=== PATIENT | female | born 1970 | race Hispanic/Latino ===

== ENCOUNTER 2025-04-23 07:20 | Inpatient (IN) | payer SELFPAY ==
[~2025-04-23] VITALS: Ht 162.6 cm; Wt 111.0 kg
--- NOTE | 2025-04-23 07:37 | EKG ---
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
--- NOTE | 2025-04-23 07:39 | ERN ---
General Chief Complaint: Abdominal Pain Stated Complaint: ABD PAIN Time Seen by MD: 07:24 Source: patient History of Present Illness Initial Comments In his is a 54-year-old female coming in complaining of epigastric pain. Patient states that this pain woke her up in the morning walk. States that the pain is quantified at 8/10. No fever no chills. Allergies: Coded Allergies: No Known Drug Allergies (Unverified Allergy, Unknown, 04/23/25) Past Medical History Past Medical History: A-Fib Past Surgical History: None ROS Dictation CONSTITUTIONAL: No chills, no fever, no weakness, no diaphoresis, no malaise. HEAD/FACE: No signs of trauma. EENT: No eye pain, no blurred vision, no tearing, no double vision, no ear pain, no ear discharge, no nose pain, no nasal congestion, no throat pain, no throat swelling, no mouth pain. RESPIRATORY: No cough, no orthopnea, no SOB, no stridor, no wheezing. CARDIOVASCULAR: No chest pain, no edema, no palpitations, no syncope. GASTROINTESTINAL/ABDOMINAL: abdominal pain, no constipation, no diarrhea, no nausea, no vomiting. GENITOURINARY: No abnormal discharge, no dysuria, no frequent urination, no hematuria. No complaints of pain in the genitals. MUSCULOSKELETAL: No back pain, no gout, no joint pain, no joint swelling, no muscle pain, no muscle stiffness, no neck pain. INTEGUMENTARY: No change in color, no change in hair/nails, no dryness, no lesion, no lumps, no rash. NEUROLOGICAL/PSYCH: No anxiety, not depressed, no emotional problem, no headache, no numbness, no pre-existing deficit, no history of seizures, no tremors, no weakness. HEMATOLOGIC/LYMPHATIC: Not anemic, no history of blood clots, no apparent bleeding, no bruising, glands not swollen. All Systems Negative, Except as Noted. Physical Exam Physical Exam Dictation VITAL SIGNS: Reviewed. GENERAL APPEARANCE: Alert, oriented x3, no acute distress, obese. HEAD AND FACE: Non-traumatic. EYES: PERRL, pink conjunctivas, eyelid no trauma, anterior chamber clear. EARS: Pinnas intact and no signs of trauma or erythema. Ear canals clear and no discharge. TMs no erythema. NOSE: No discharge, no bleeding. OROPHARYNX: Mouth normal, teeth no caries, tongue pink. Pharynx clear, no erythema. Tonsils no exudates, no abscesses noted. Mucous membrane moist. NECK: Supple, non-tender, no thyromegaly, no masses, no JVD, no bruits. BREAST: Deferred. CHEST: No tenderness, no crepitus, no paradoxical movement, no retractions. LUNGS: Clear, well-ventilated, symmetric, no rales, no wheezing, no rhonchi, no stridor, good breath sounds bilaterally. HEART: Regular rate, regular rhythm, no murmur, no gallops. VASCULAR: No peripheral edema. ABDOMEN: Soft, positive bowel sounds, nondistended, no guarding, epigastric tender, no rebound, no masses no hepatomegaly, no splenomegaly, no Perkins's sign, no hernias. RECTAL: Deferred. GENITAL: Deferred. NEUROLOGICAL: Normal speech, gross motor function intact, gross sensory function intact. MUSCULOSKELETAL: Neck nontender, full range of motion, back nontender, full range of motion. EXTREMITIES: Nontender, full range of motion. SKIN: Color pink, dry, no turgor, no rash, no lacerations, no abrasions, no contusions. LYMPHATICS: Deferred. Results Laboratory and Microbiology Lab and Micro Result Laboratory Tests Test 04/23/25 07:40 04/23/25 08:10 White Blood Count 6.9 K/uL (4.8-10.8) Red Blood Count 4.28 MIL/uL (4.00-5.50) Hemoglobin 12.6 g/dL (12.0-16.0) Hematocrit 39.2 % (36-48) Mean Corpuscular Volume 91.6 fL (79-99) Mean Corpuscular Hemoglobin 29.4 pg (27.0-33.0) Mean Corpuscular Hemoglobin Concent 32.1 g/dL (32.0-36.0) Red Cell Distribution Width 13.4 % (11.0-15.5) Platelet Count 254 K/uL (130-400) Mean Platelet Volume 9.7 fL (7.5-10.5) Immature Granulocyte % (Auto) 0.4 % (0-1) Neutrophils (%) (Auto) 61.2 % (40.0-77.0) Lymphocytes (%) (Auto) 27.4 % (21.0-51.0) Monocytes (%) (Auto) 6.1 % (3.0-13.0) Eosinophils (%) (Auto) 4.5 % (0.0-8.0) Basophils (%) (Auto) 0.4 % (0.0-5.0) Neutrophils # (Auto) 4.3 K/uL (1.8-7.7) Lymphocytes # (Auto) 1.9 K/uL (1.0-4.8) Monocytes # (Auto) 0.4 K/uL (0.1-1.0) Eosinophils # (Auto) 0.31 K/uL (0.00-0.70) Basophils # (Auto) 0.03 K/uL (0.00-0.20) Absolute Immature Granulocyte (auto 0.03 K/uL (0-1) Nucleated Red Blood Cells 0.0 % (0.0-0.19) Sodium Level 140 mmol/L (136-145) Potassium Level 4.0 mmol/L (3.5-5.1) Chloride Level 104 mmol/L (101-111) Carbon Dioxide Level 29 mmol/L (21-32) Blood Urea Nitrogen 17 mg/dL (7-18) Creatinine 0.7 mg/dL (0.5-1.0) Glomerular Filtration Rate Calc 103 mL/min (>90) Random Glucose 137 mg/dL (70-105) H Total Calcium 8.7 mg/dL (8.5-10.1) Total Bilirubin 0.3 mg/dL (0.2-1.0) Aspartate Amino Transf (AST/SGOT) 14 U/L (10-37) Alanine Aminotransferase (ALT/SGPT) 34 U/L (12-78) Alkaline Phosphatase 92 U/L (50-136) Troponin I High Sensitivity < 4 ng/L (4-50) L Total Protein 7.6 g/dL (6.0-8.3) Albumin 3.8 g/dL (3.5-5.0) Lipase 30 U/L (16-77) Urine Color LIGHT-YELLOW (YELLOW) Urine Appearance CLOUDY (CLEAR) H Urine pH 6.5 (5.0-8.0) Urine Specific Beaver 1.018 (1.001-1.031) Urine Protein NEGATIVE mg/dL (NEGATIVE) Urine Glucose (UA) NEGATIVE mg/dL (NEGATIVE) Urine Ketones NEGATIVE mg/dL (NEGATIVE) Urine Occult Blood NEGATIVE (NEGATIVE) Urine Nitrate 2+ (NEGATIVE) H Urine Bilirubin NEGATIVE mg/dL (NEGATIVE) Urine Urobilinogen 0.2 mg/dL (0.2-1.0) Urine Leukocyte Esterase NEGATIVE Yara/uL Urine RBC 0-1 /HPF (0-1) Urine WBC 2-5 /HPF (0-1) H Urine Squamous Epithelial Cells RARE /HPF (0-2) Urine Non-Squamous Epithelial Cells 1 /HPF (0-2) Urine Bacteria MANY /HPF (None Seen) Labs Reviewed?: Yes EKG/XRAY/US/CT/MRI EKG Comment 04/23/2025 time 7:32 a.m. Ventricular rate 59 Sinus rhythm [place] [address] wave elevation or depression Ultrasound Comment Ultrasound right upper quadrant abdomen-gallstones and small gallstone at the neck of the gallbladder not movable CT Scan Comment [place] [address] [place] [address] IMAGING REPORT Signed PATIENT: CARIDAD OLIVEIRA MR#: [id number] : 1970 SEX: F AGE: 54 LOCATION: [facility] ORDER [id number] STATUS: [facility] REPORT#: [id number] SERVICE 1038 REASON: abd pain ORDERING PHYSICIAN: SANDEEP JIMÉNEZ MD PROCEDURE: ABD PEL WO - CT ABDOMEN/PELVIS W/O CONTRAST EXAM: CT Abdomen and Pelvis Without IV contrast CLINICAL HISTORY: abd pain TECHNIQUE: Axial computed tomography images of the abdomen and pelvis without intravenous contrast. CONTRAST: No IV contrast. COMPARISON: None provided. FINDINGS: LUNG BASES: No pleural effusions are seen. There is mild dependent airspace disease within the bilateral lower lobes that is presumed to reflect atelectasis. LIVER: The liver is enlarged in size. The right hepatic lobe measures approximately 18 cm. Suspected hepatic steatosis. GALLBLADDER AND BILE DUCTS: No biliary ductal dilatation is evident. The gallbladder appears distended with a large calculus of size 2.4 x 3.5 cm seen in the gallbladder lumen. There is no gallbladder wall thickening or pericholecystic inflammatory findings; however, if there is clinical concern for cholecystitis recommend right upper quadrant ultrasound for further evaluation. PANCREAS: Unremarkable. SPLEEN: Unremarkable. ADRENAL GLANDS: Unremarkable. KIDNEYS, URETERS, AND BLADDER: The kidneys appear within normal limits. There is no hydronephrosis or hydroureter. No urinary calculi are seen. STOMACH AND BOWEL: Unremarkable appearance of the stomach. No evidence of bowel obstruction. No evidence suggesting enteritis or colitis. Colonic diverticulosis without CT evidence for diverticulitis. APPENDIX: The appendix is normal. PERITONEUM: No free fluid. No free air. LYMPH NODES: No lymphadenopathy is evident. REPRODUCTIVE: The cervix appears mildly bulky, measuring approximately 3.6 x 3 cm. VASCULATURE: No evidence of abdominal aortic aneurysm. BONES: No aggressive appearing osseous lesion. No acute osseous pathology evident. Mild degenerative changes in the spine. Sclerosis in the bilateral sacro-iliac joints. Mild scoliosis in lumbar spine. IMPRESSION: 1. No acute intraabdominal or pelvic pathology. 2. Large gallbladder calculus measuring 2.4 x 3.5 cm with gallbladder distention. No additional secondary CT findings to suggest acute cholecystitis; however, if clinical concern persist recommend right upper quadrant ultrasound for further evaluation. 3. Hepatomegaly with right hepatic lobe measuring 18 cm. Hepatic steatosis. /Glen DICTATED BY: MEHREEN LAMB Jr., MD DATE: 04/23/251335 ELECTRONICALLY SIGNED BY: MEHREEN LAMB Jr., MD DATE: 04/23/251335 [facility] MDM: Differential diagnosis: Cholecystitis, biliary colic, abdominal pain, Rationale: Tests considered and ordered secondary to shared decision making include: Previous outside records reviewed: Old ER visits. Risk of complication and/or morbidity or mortality of patient management: None Medications-Per medication reconciliation Need for hospitalization: Patient does meet criteria for hospitalization. Need for emergency major/minor surgery: No There are no social concerns with this patient. Prescription drug management Prescriptions will include symptomatic care Patient's prior external medical records from other ER visits were reviewed by me as indicated. Prior testing and results from previous visits were reviewed. Prior tests were taken into account with medical decision making and resource utilization, independent historian/historians were used to obtain complete medical history. I independently interpreted the test that were performed, results were reviewed by me and considered findings on radiology if ordered. Medical management and examination interpretation discussions were had by me with other qualified healthcare professionals as indicated for the patient's care. She will be admitted under the care of hospitalist group for ongoing management of acute cholecystitis. Surgeon consulted already ED Course Orders Procedure Category Date Status Time Cbc With Differential LAB 04/23/25 Complete 07:25 Comprehensive LAB 04/23/25 Complete Metabolic Panel 07:25 Troponin I High LAB 04/23/25 Complete Sensitivity 07:25 Urinalysis Profile LAB 04/23/25 Complete 07:25 12 Lead Ekg Tracing- EKG 04/23/25 Complete Technical 07:25 0.9%Nacl 1000ml (Ns PHA 04/23/25 Complete 1000ml) 07:30 Pantoprazole 40mg Inj PHA 04/23/25 Complete (Protonix 40mg Inj 07:30 Lipase LAB 04/23/25 Complete 07:25 Culture Urine GOLDY 04/23/25 In Process 09:51 Ondansetron 4mg Inj PHA 04/23/25 Complete (Zofran 4mg Inj) 10:30 Lidocaine Hcl 2% PHA 04/23/25 Complete Viscous (Lidocaine Hcl 10:30 Mag/Alum/Simeth 30ml PHA 04/23/25 Complete (Maalox Plus 30ml) 10:30 Ct Abdomen/Pelvis W/O CT 04/23/25 Resulted Contrast 10:38 Us Abdominal Ruq\Ltd US 04/23/25 Taken 12:47 Current Medications Medications (Trade) Dose Ordered Sig/Everette Route PRN Reason Start Time Stop Time Status Last Admin Dose Admin Al Hydroxide/Mg Hydroxide (MAALox PLUS 30ML) 30 ml ONCE ONCE PO 04/23/25 10:30 04/23/25 10:31 DC 04/23/25 10:30 Lidocaine HCl (Lidocaine HCl 2% Viscous) 10 ml ONCE ONCE PO 04/23/25 10:30 04/23/25 10:31 DC 04/23/25 10:31 Ondansetron HCl (zoFRAN 4MG INJ) 4 mg ONCE ONCE IVP 04/23/25 10:30 04/23/25 10:31 DC 04/23/25 10:30 Pantoprazole Sodium (PROTonix 40MG INJ) 40 mg ONCE ONCE IVP 04/23/25 07:30 04/23/25 07:31 DC 04/23/25 08:36 Sodium Chloride 1,000 ml @ 0 mls/hr ONCE ONCE IV 04/23/25 07:30 04/23/25 07:31 DC 04/23/25 08:36 Vital Signs Date Time Temp Pulse Resp B/P (MAP) Pulse Ox O2 Delivery O2 Flow Rate FiO2 04/23/25 13:15 97.9 77 18 158/80 98 Room Air* 0 21 04/23/25 10:23 97.3 65 18 178/74 98 Room Air* 0 21 04/23/25 08:50 97.3 63 18 158/62 97 Room Air* 0 21 04/23/25 07:23 97.9 64 18 179/77 98 Room Air 0 DX & DISP Disposition: Inpatient Decision to Admit Time: 14:39 Departure Impression: Primary Impression: Cholecystitis Condition: Stable Referrals: SELF,REFERRAL (PCP) SANDEEP JIMÉNEZ MD Apr 23, 2025 07:38
[2025-04-23 07:49] LABS: IMMATURE GRANULOCYTE ABSOLUTE 0.03 K/uL (0-1); NUCLEATED RED BLOOD CELLS 0.0 % (0.0-0.19); PLATELET COUNT (AUTO) 254 K/uL (130-400); RED BLOOD CELL COUNT(AUTO) 4.28 MIL/uL (4.00-5.50); RED CELL DISTRIBUTION WIDTH 13.4 % (11.0-15.5); WHITE BLOOD COUNT (AUTO) 6.9 K/uL (4.8-10.8)
[2025-04-23 08:05] LABS: CREATININE 0.7 mg/dL (0.5-1.0); GLOMERULAR FILTR. RATE CALC 103.0 mL/min (>90); GLUCOSE,RANDOM 137.0 mg/dL (70-105); SODIUM SERUM 140.0 mmol/L (136-145); UREA NITROGEN, BLOOD 17.0 mg/dL (7-18)
[2025-04-23 08:08] LABS: ASPARTATE AMINOTRANSFERASE 14.0 U/L (10-37); TOTAL PROTEIN, SERUM 7.6 g/dL (6.0-8.3)
[2025-04-23] MEDS: 0.9%NACL 1000ML 1,000 ML IV ONE (08:36)
[2025-04-23 09:39] LABS: APPEARANCE,URINE CLOUDY (CLEAR); GLUCOSE, URINE (UA) NEGATIVE (NEGATIVE); LEUKOCYTE ESTERASE ,URINE NEGATIVE Leu/uL (NEGATIVE); NITRATE,URINE 2+ (NEGATIVE); OCCULT BLOOD,URINE NEGATIVE (NEGATIVE)
[2025-04-23 09:50] LABS: ADD UA MICROSCOPIC YES
[2025-04-23 10:10] LABS: NON-SQUAMOUS EPITHELIAL CELL 1 /HPF (0-2); SQUAMOUS EPITHELIAL CELL,UR RARE /HPF (0-2)
[2025-04-23] MEDS: MAG/ALUM/SIMETH 30 ML UDCUP PO ONE (10:30)
[2025-04-23] MEDS: LIDOCAINE HCL 2% VISCOUS 15 ML UDCUP PO ONE (10:31)
--- NOTE | 2025-04-23 12:37 | HMCIMG ---
EXAM: CT Abdomen and Pelvis Without IV contrast CLINICAL HISTORY: abd pain TECHNIQUE: Axial computed tomography images of the abdomen and pelvis without intravenous contrast. CONTRAST: No IV contrast. COMPARISON: None provided. FINDINGS: LUNG BASES: No pleural effusions are seen. There is mild dependent airspace disease within the bilateral lower lobes that is presumed to reflect atelectasis. LIVER: The liver is enlarged in size. The right hepatic lobe measures approximately 18 cm. Suspected hepatic steatosis. GALLBLADDER AND BILE DUCTS: No biliary ductal dilatation is evident. The gallbladder appears distended with a large calculus of size 2.4 x 3.5 cm seen in the gallbladder lumen. There is no gallbladder wall thickening or pericholecystic inflammatory findings; however, if there is clinical concern for cholecystitis recommend right upper quadrant ultrasound for further evaluation. PANCREAS: Unremarkable. SPLEEN: Unremarkable. ADRENAL GLANDS: Unremarkable. KIDNEYS, URETERS, AND BLADDER: The kidneys appear within normal limits. There is no hydronephrosis or hydroureter. No urinary calculi are seen. STOMACH AND BOWEL: Unremarkable appearance of the stomach. No evidence of bowel obstruction. No evidence suggesting enteritis or colitis. Colonic diverticulosis without CT evidence for diverticulitis. APPENDIX: The appendix is normal. PERITONEUM: No free fluid. No free air. LYMPH NODES: No lymphadenopathy is evident. REPRODUCTIVE: The cervix appears mildly bulky, measuring approximately 3.6 x 3 cm. VASCULATURE: No evidence of abdominal aortic aneurysm. BONES: No aggressive appearing osseous lesion. No acute osseous pathology evident. Mild degenerative changes in the spine. Sclerosis in the bilateral sacro-iliac joints. Mild scoliosis in lumbar spine. IMPRESSION: 1. No acute intraabdominal or pelvic pathology. 2. Large gallbladder calculus measuring 2.4 x 3.5 cm with gallbladder distention. No additional secondary CT findings to suggest acute cholecystitis; however, if clinical concern persist recommend right upper quadrant ultrasound for further evaluation. 3. Hepatomegaly with right hepatic lobe measuring 18 cm. Hepatic steatosis. /Clark
--- NOTE | 2025-04-23 15:22 | HMCIMG ---
EXAM: US Abdomen, Right Upper Quadrant. CLINICAL HISTORY: ruq pain TECHNIQUE: Right upper quadrant sonography performed with image documentation. COMPARISON: None provided. FINDINGS: LIVER: The liver is enlarged in size, measuring approximately 20.1 cm with increased echogenicity. GALLBLADDER: The gallbladder appears distended with multiple calculi. Normal gallbladder wall thickness, measuring 0.2 cm. Trace pericholecystic free fluid. COMMON BILE DUCT: No dilation. PANCREAS: The visualized pancreas appears within normal limits. The distal pancreas is obscured by bowel gas. RIGHT KIDNEY: Unremarkable. Normal renal contours. No renal mass or calculus. No hydronephrosis. IMPRESSION: 1. Cholelithiasis, gallbladder distention, and trace pericholecystic free fluid or findings concerning for acute cholecystitis. Recommend a hepatobiliary (HIDA) scan for further evaluation. 2. Hepatomegaly and hepatic steatosis. /Ministerio
[2025-04-23 15:34] LABS: INR 1.01 (0.85-1.15)
--- NOTE | 2025-04-23 16:22 | HP ---
[facility] HISTORY AND PHYSICAL Date of Service: Apr 23, 2025 Time of Service: 16:17 HISTORY OF PRESENT ILLNESS: Date of service: 04/23/2025, patient was seen in ER 16 This is a 54-year-old female with underlying history of atrial fibrillation, obesity who presented to the ER for further evaluation of epigastric abdominal pain with nausea. Symptoms started early this morning and was severe in intensity and patient rated the pain as 8/10. Pain was radiating to the back. Pain has been intermittent and on current bedside interview, she reports pain is 6/10. Denies previous history of GI disorder. Denies previous history of gastritis/peptic ulcer disease. Patient is followed by Dr. Lane with cardiac electrophysiology as outpatient. Reports a prior diagnosis of atrial fibrillation and is currently maintained on outpatient treatment with metoprolol tartrate 50 mg b.i.d. and flecainide 50 mg b.i.d.. Patient denies being on anticoagulation for atrial fibrillation. Denies being on aspirin either. On presentation to the hospital, patient was noted to be afebrile with T-max of 97.9 F, blood pressure of 179/77, heart rate of 64 and saturating well on room air. Labs on presentation showed WBC count of 6900, hemoglobin of 12.6, platelet count of 4000. CMP was unremarkable. Cardiac panel was noted to be negative. Further evaluation with CT abdomen pelvis without contrast showed findings of large gallbladder calculus measuring 2.4 cm x 3.5 cm with gallbladder distention. Abdominal US showed findings of cholelithiasis with gallbladder distention with cholecystitis not ruled out. Patient will be admitted for further treatment management of biliary colic with cholelithiasis with concerns for possible cholecystitis. Patient will be started on IV fluid hydration, IV antibiotics and will be kept NPO. Consultation with General surgery has already been requested from the ER by Dr. Jiménez, will follow up further recommendations. HIDA Scan will be obtained. Patient denies active chest pain or shortness of breath otherwise. REVIEW OF SYSTEMS CONSTITUTIONAL: Denies fevers, chills, or night sweats. No unintentional weight loss reported. NEUROLOGICAL: Denies headache, amaurosis fugax, motor weakness, sensory deficit, vertigo/spinning sensation, gait abnormalities, or tremors. ENT: No hearing loss, otalgia, otorrhea, rhinitis, rhinorrhea, hoarseness, or sore throat. CARDIOVASCULAR: Denies any exertional angina, dyspnea on exertion, orthopnea, paroxysmal nocturnal dyspnea, palpitations, life-threatening arrhythmias, claudication. PULMONARY: Denies any shortness of breath, cough, phlegm/sputum, hemoptysis, pleuritic chest pain. SLEEP: Denies morning headaches, daytime somnolence or napping. Denies difficulty falling asleep, staying asleep, waking from sleep. Denies knowledge of snoring. GASTROINTESTINAL: epigastric abdominal pain with nausea and vomiting today GENITOURINARY: Denies frequency, urgency, nocturia, hematuria or incontinence (Storage/Irritative symptoms.) Low urinary stream, straining to void, urinary intermittency or hesitancy, splitting of the voiding stream, terminal dribbling. ENDOCRINOLOGIC: Denies polyuria, polydipsia, polyphagia or heat/cold intolerances. HEMATOLOGIC: Denies thrombophilia/previous clots, or coagulopathy/bleeding disorders. ONCOLOGIC: Denies personal history of malignancy. DERMATOLOGIC: Denies rashes or pruritus. PSYCHIATRIC: Denies any suicidal or homicidal ideation. Denies hallucinations. PAST MEDICAL HISTORY: Atrial fibrillation, obesity PAST SURGICAL HISTORY: Denies history of major surgery PAST SOCIAL HISTORY: Denies active smoking or alcohol consumption FAMILY HISTORY: Denies pertinent family history Allergies: No known drug allergies Home medications: Reports being on metoprolol tartrate 50 mg b.i.d., flecainide 50 mg b.i.d. Coded Allergies: No Known Drug Allergies (Unverified Allergy, Unknown, 04/23/25) PHYSICAL EXAM GENERAL APPEARANCE: The patient is awake, alert, and oriented, in no acute cardiopulmonary distress. NEUROLOGICAL: Cranial nerves II-XII grossly intact. Motor is 5/5 in bilateral upper and lower extremities proximal to distal. No sensory deficits. HEENT: Face is symmetric. Pupils are equal and reactive. Extraocular movements are intact. NECK: Supple. No JVD. No thyromegaly. No submental, submandibular, pre- /postauricular, occipital or supraclavicular lymphadenopathy. CHEST: Normal chest expansion. No Telemetry. LUNGS: Absence of any rales, rhonchi or any wheezing. CARDIOVASCULAR: Regular. S1 and S2 normal. No appreciable rubs, murmurs or gallops. ABDOMEN: Soft, nontender, and nondistended. There is no rebound, voluntary guarding, or rigidity. : Deferred. No Muhammad. EXTREMITIES: Non-edematous and not cyanotic. No clubbing. Good capillary refill. SKIN: No skin breakdown. Vital Sign (Last 24 Hours) 04/23/25 13:15 Temp 97.9 Pulse 77 Resp 18 B/P (MAP) 158/80 Pulse Ox 98 O2 Delivery Room Air* O2 Flow Rate 0 FiO2 21 LABS: Laboratory: Test 04/23/25 15:13 04/23/25 08:10 04/23/25 07:40 Range/Units Prothrombin Time 10.7 9.6-11.6 SEC Prothromb Time International Ratio 1.01 0.85-1.15 Activated Partial Thromboplast Time 27.3 26.3-35.5 SEC Hemoglobin A1c 5.7 4.0-6.0 % Estimated Average Glucose (eAG) 117 70-126 mg/dL C-Reactive Protein, Quantitative 10.90 H 0.5-3.0 mg/L Procalcitonin < 0.05 L 0.05-0.5 ng/mL Thyroid Stimulating Hormone (TSH) 0.66 0.36-3.74 uIU/mL Urine Color LIGHT-YELLOW YELLOW Urine Appearance CLOUDY H CLEAR Urine pH 6.5 5.0-8.0 Urine Specific Varney 1.018 1.001-1.031 Urine Protein NEGATIVE NEGATIVE mg/dL Urine Glucose (UA) NEGATIVE NEGATIVE mg/dL Urine Ketones NEGATIVE NEGATIVE mg/dL Urine Occult Blood NEGATIVE NEGATIVE Urine Nitrate 2+ H NEGATIVE Urine Bilirubin NEGATIVE NEGATIVE mg/dL Urine Urobilinogen 0.2 0.2-1.0 mg/dL Urine Leukocyte Esterase NEGATIVE NEGATIVE Yara/uL Urine RBC 0-1 0-1 /HPF Urine WBC 2-5 H 0-1 /HPF Urine Squamous Epithelial Cells RARE 0-2 /HPF Urine Non-Squamous Epithelial Cells 1 0-2 /HPF Urine Bacteria MANY None Seen /HPF White Blood Count 6.9 4.8-10.8 K/uL Red Blood Count 4.28 4.00-5.50 MIL/uL Hemoglobin 12.6 12.0-16.0 g/dL Hematocrit 39.2 36-48 % Mean Corpuscular Volume 91.6 79-99 fL Mean Corpuscular Hemoglobin 29.4 27.0-33.0 pg Mean Corpuscular Hemoglobin Concent 32.1 32.0-36.0 g/dL Red Cell Distribution Width 13.4 11.0-15.5 % Platelet Count 254 130-400 K/uL Mean Platelet Volume 9.7 7.5-10.5 fL Immature Granulocyte % (Auto) 0.4 0-1 % Neutrophils (%) (Auto) 61.2 40.0-77.0 % Lymphocytes (%) (Auto) 27.4 21.0-51.0 % Monocytes (%) (Auto) 6.1 3.0-13.0 % Eosinophils (%) (Auto) 4.5 0.0-8.0 % Basophils (%) (Auto) 0.4 0.0-5.0 % Neutrophils # (Auto) 4.3 1.8-7.7 K/uL Lymphocytes # (Auto) 1.9 1.0-4.8 K/uL Monocytes # (Auto) 0.4 0.1-1.0 K/uL Eosinophils # (Auto) 0.31 0.00-0.70 K/uL Basophils # (Auto) 0.03 0.00-0.20 K/uL Absolute Immature Granulocyte (auto 0.03 0-1 K/uL Nucleated Red Blood Cells 0.0 0.0-0.19 % Sodium Level 140 136-145 mmol/L Potassium Level 4.0 3.5-5.1 mmol/L Chloride Level 104 101-111 mmol/L Carbon Dioxide Level 29 21-32 mmol/L Blood Urea Nitrogen 17 7-18 mg/dL Creatinine 0.7 0.5-1.0 mg/dL Glomerular Filtration Rate Calc 103 >90 mL/min Random Glucose 137 H 70-105 mg/dL Total Calcium 8.7 8.5-10.1 mg/dL Total Bilirubin 0.3 0.2-1.0 mg/dL Aspartate Amino Transf (AST/SGOT) 14 10-37 U/L Alanine Aminotransferase (ALT/SGPT) 34 12-78 U/L Alkaline Phosphatase 92 50-136 U/L Troponin I High Sensitivity < 4 L 4-50 ng/L Total Protein 7.6 6.0-8.3 g/dL Albumin 3.8 3.5-5.0 g/dL Lipase 30 16-77 U/L Current Medications Medications (Trade) Dose Ordered Sig/Everette Route PRN Reason Start Time Stop Time Status Last Admin Dose Admin Acetaminophen (TYLenol 325MG TAB) 650 mg Q6H PRN PO MILD PAIN (1-3) 04/23/25 15:30 05/23/25 15:29 Flecainide Acetate (Tambocor) 50 mg BID PO 04/23/25 21:00 05/23/25 20:59 Ketorolac Tromethamine (toRADol) 15 mg Q12H PRN IV MODERATE PAIN (4-6) 04/23/25 15:30 04/25/25 16:00 Lactated Ringer's 1,000 ml @ 100 mls/hr Q10H IV 04/23/25 15:00 05/23/25 14:59 Metoprolol Tartrate (loprESSOR) 50 mg BID PO 04/23/25 21:00 05/23/25 20:59 Morphine Sulfate (morPHINE 2MG SYG) 2 mg Q6H PRN IVP SEVERE PAIN (7-10) 04/23/25 15:30 04/30/25 15:29 Ondansetron HCl (zoFRAN 4MG INJ) 4 mg Q6H PRN IVP NAUSEA/VOMITING 04/23/25 15:30 05/23/25 15:29 Piperacillin Sod/ Tazobactam Sod (Zosyn 3.375gm+NS 50ml) 3.375 gm Q8H IVPB 04/23/25 15:30 05/03/25 15:29 Piperacillin Sod/ Tazobactam Sod (Zosyn 3.375gm+NS 50ml) 3.375 gm Q8H STAT IV 04/23/25 14:44 04/23/25 14:45 DC DIAGNOSTICS / RADIOLOGY: SERVICE [id number] REASON: abd pain ORDERING PHYSICIAN: SANDEEP JIMÉNEZ MD PROCEDURE: ABD PEL WO - CT ABDOMEN/PELVIS W/O CONTRAST EXAM: CT Abdomen and Pelvis Without IV contrast CLINICAL HISTORY: abd pain TECHNIQUE: Axial computed tomography images of the abdomen and pelvis without intravenous contrast. CONTRAST: No IV contrast. COMPARISON: None provided. FINDINGS: LUNG BASES: No pleural effusions are seen. There is mild dependent airspace disease within the bilateral lower lobes that is presumed to reflect atelectasis. LIVER: The liver is enlarged in size. The right hepatic lobe measures approximately 18 cm. Suspected hepatic steatosis. GALLBLADDER AND BILE DUCTS: No biliary ductal dilatation is evident. The gallbladder appears distended with a large calculus of size 2.4 x 3.5 cm seen in the gallbladder lumen. There is no gallbladder wall thickening or pericholecystic inflammatory findings; however, if there is clinical concern for cholecystitis recommend right upper quadrant ultrasound for further evaluation. PANCREAS: Unremarkable. SPLEEN: Unremarkable. ADRENAL GLANDS: Unremarkable. KIDNEYS, URETERS, AND BLADDER: The kidneys appear within normal limits. There is no hydronephrosis or hydroureter. No urinary calculi are seen. STOMACH AND BOWEL: Unremarkable appearance of the stomach. No evidence of bowel obstruction. No evidence suggesting enteritis or colitis. Colonic diverticulosis without CT evidence for diverticulitis. APPENDIX: The appendix is normal. PERITONEUM: No free fluid. No free air. LYMPH NODES: No lymphadenopathy is evident. REPRODUCTIVE: The cervix appears mildly bulky, measuring approximately 3.6 x 3 cm. VASCULATURE: No evidence of abdominal aortic aneurysm. BONES: No aggressive appearing osseous lesion. No acute osseous pathology evident. Mild degenerative changes in the spine. Sclerosis in the bilateral sacro-iliac joints. Mild scoliosis in lumbar spine. IMPRESSION: 1. No acute intraabdominal or pelvic pathology. 2. Large gallbladder calculus measuring 2.4 x 3.5 cm with gallbladder distention. No additional secondary CT findings to suggest acute cholecystitis; however, if clinical concern persist recommend right upper quadrant ultrasound for further evaluation. 3. Hepatomegaly with right hepatic lobe measuring 18 cm. Hepatic steatosis. /Stollings DICTATED BY: MEHREEN LAMB Jr., MD DATE: 04/23/251335 ELECTRONICALLY SIGNED BY: MEHREEN LAMB Jr., MD DATE: 04/23/251335 SERVICE 1247 REASON: ruq pain ORDERING PHYSICIAN: SANDEEP JIMÉNEZ MD PROCEDURE: ABDRUQLTD - US ABDOMINAL RUQ\LTD EXAM: US Abdomen, Right Upper Quadrant. CLINICAL HISTORY: ruq pain TECHNIQUE: Right upper quadrant sonography performed with image documentation. COMPARISON: None provided. FINDINGS: LIVER: The liver is enlarged in size, measuring approximately 20.1 cm with increased echogenicity. GALLBLADDER: The gallbladder appears distended with multiple calculi. Normal gallbladder wall thickness, measuring 0.2 cm. Trace pericholecystic free fluid. COMMON BILE DUCT: No dilation. PANCREAS: The visualized pancreas appears within normal limits. The distal pancreas is obscured by bowel gas. RIGHT KIDNEY: Unremarkable. Normal renal contours. No renal mass or calculus. No hydronephrosis. IMPRESSION: 1. Cholelithiasis, gallbladder distention, and trace pericholecystic free fluid or findings concerning for acute cholecystitis. Recommend a hepatobiliary (HIDA) scan for further evaluation. 2. Hepatomegaly and hepatic steatosis. /Stollings DICTATED BY: MEHREEN LAMB Jr., MD DATE: 04/23/251621 ELECTRONICALLY SIGNED BY: MEHREEN LAMB Jr., MD DATE: 04/23/251621 ASSESSMENT: Biliary colic with cholelithiasis, POA Rule out developing acute cholecystitis, POA Underlying history of atrial fibrillation, POA Rule out urinary tract infection, POA Obesity, POA PLAN: Patient will be admitted to medical-surgical floor under telemetry monitoring We will keep patient NPO Gallbladder noted to be distended with multiple large stones, we will obtain HIDA scan to rule out developing acute cholecystitis Patient will be kept NPO except for medications today We will start patient on IV hydration with LR at 100 mL/hour We will keep patient on IV Zosyn empirically We will follow up urine culture We will keep patient on GI prophylaxis with Protonix Consultation with General surgery has been requested Patient to continue with home medications for atrial fibrillation including metoprolol tartrate and flecainide All labs will be repeated in the morning We will keep patient on DVT prophylaxis with Lovenox Date of service: 04/23/2025 Plan of care was discussed with patient and family at bedside, Mike Barrios MD Advanced Care Planning: Which of the following were discussed: Hospice care: Yes __ No _X_ Therapeutic options: Yes __X No __ Advance directives: Yes __X No __ Other discussions: Discussed with who?: Patient Voluntary nature of this service was explained to the patient? Yes _x_ No __ Amount of time spent: 20 minutes MIKE BARRIOS MD Apr 23, 2025 16:22
--- NOTE | 2025-04-23 16:33 | NUR ---
DCP:HOME Pt currently lives alone in her home. Pt does not report having any DME, home health, or provider services. Pt states that she can complete ADLs independently. [facility] however states that she has not gone in about a year however if needed for follow up she will go there. At [place] pt states that she is thinking about going home with her dgt Julia [phone] and family can assist with transportation. Addendum: 04/23/25 at 1636 by RICK MARTINEZ SS Amended: Links added.
[2025-04-23] MEDS: ZOSYN 3.375GM +NS 50ML IVPB SCH (16:51)
[2025-04-23] MEDS: LACTATED RINGERS 1000ML 1,000 ML IV SCH (16:52)
[2025-04-23] MEDS: ZOSYN 3.375GM +NS 50ML IV STA (16:53)
--- NOTE | 2025-04-23 17:01 | NUR ---
VEROA NPO AFTER MIDNIGHT.VEROA IN THEMORNING. NO NARCOTICS PRIOR TO PROCEDURE
[2025-04-23] MEDS: ENOXAPARIN SODIUM 40 MG/0.4 ML SYRINGE SQ SCH (19:59)
[2025-04-23] MEDS: FLECAINIDE ACETATE 100 MG TABLET PO SCH (20:13)
[2025-04-23 23:00] VITALS: BP 149/68; PULSE 69; RESP 20; TEMP 98.2
[2025-04-24] VITALS (8 sets, daily range): BP systolic 117–190; BP diastolic 52–87; PULSE 52–67; RESP 19–20; TEMP 97.6–98.1; O2SAT 96
[2025-04-24 05:33] LABS: IMMATURE GRANULOCYTE ABSOLUTE 0.01 K/uL (0-1); NUCLEATED RED BLOOD CELLS 0.0 % (0.0-0.19); PLATELET COUNT (AUTO) 228 K/uL (130-400); RED BLOOD CELL COUNT(AUTO) 3.82 MIL/uL (4.00-5.50); RED CELL DISTRIBUTION WIDTH 13.6 % (11.0-15.5); WHITE BLOOD COUNT (AUTO) 5.8 K/uL (4.8-10.8)
[2025-04-24 05:52] LABS: ASPARTATE AMINOTRANSFERASE 13.0 U/L (10-37); CREATININE 0.6 mg/dL (0.5-1.0); GLOMERULAR FILTR. RATE CALC 107.0 mL/min (>90); GLUCOSE,RANDOM 105.0 mg/dL (70-105); SODIUM SERUM 141.0 mmol/L (136-145); TOTAL PROTEIN, SERUM 6.4 g/dL (6.0-8.3); UREA NITROGEN, BLOOD 11.0 mg/dL (7-18)
--- NOTE | 2025-04-24 11:03 | NUR ---
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
[2025-04-24] MEDS: MAGNESIUM CITRATE 296 ML SOLUTION PO ONE (11:15)
--- NOTE | 2025-04-24 11:29 | CONS ---
GENERAL SURGERY CONSULTATION NOTE DATE OF CONSULTATION: Apr 24, 2025 TIME OF CONSULTATION: 11:29 CONSULTING SERVICE: Jose Antonio Etienne MD REQUESTING PHYSICAIN: [ ] REASON FOR CONSULTATION: [ ] Abdominal pain with nausea HISTORY OF PRESENT ILLNESS: [ ] 54-year-old lady who presented with abdominal pain Pain started the previous day associated with nausea but no vomiting Pain also radiates to her back No diarrhea but constipation PAST MEDICAL HISTORY: [ ] Morbid obesity AFib PAST SURGICAL HISTORY: [ ] None FAMILY HISTORY: [ ] No family history of hypertension or diabetes SOCIAL HISTORY: [ ] No smoking No alcohol Current Medications Medications (Trade) Dose Ordered Sig/Everette Route Start Time Stop Time Status Last Admin Dose Admin Enoxaparin Sodium (Lovenox) 40 mg HS SQ 04/23/25 21:00 05/23/25 20:59 04/23/25 19:59 40 MG Flecainide Acetate (Tambocor) 50 mg BID PO 04/23/25 21:00 05/23/25 20:59 04/24/25 08:56 50 MG Lactated Ringer's 1,000 ml @ 100 mls/hr Q10H IV 04/23/25 15:00 05/23/25 14:59 04/24/25 11:15 100 MLS/HR Metoprolol Tartrate (loprESSOR) 50 mg BID PO 04/23/25 21:00 05/23/25 20:59 04/24/25 08:56 50 MG Piperacillin Sod/ Tazobactam Sod (Zosyn 3.375gm+NS 50ml) 3.375 gm Q8H IVPB 04/23/25 15:30 05/03/25 15:29 04/24/25 06:33 3.375 GM Piperacillin Sod/ Tazobactam Sod (Zosyn 3.375gm+NS 50ml) 3.375 gm Q8H STAT IV 04/23/25 14:44 04/23/25 14:45 DC Allergies: Coded Allergies: No Known Drug Allergies (Unverified Allergy, Unknown, 04/23/25) REVIEW OF SYSTEMS: SHOE SHINER: [Denies headaches or blurring of vision.] RESP: [No cough, chest pain or SOB.] CVS: [No palpitaions.] GI: [abdominal pain with nausea no vomiting but constipation UTE: [No dysuria or hematuria.] Musculoskeletal: [No swelling or joint pain.] BACK: [No pain or swelling.] All other systems are reviewed and essentially negative pertinent positives in HPI. PHYSICAL EXAMINATION: GENERAL: [Patient is lying comfortably in bed, not in any obvious distress.] HEAD: [Normal with no signs of head trauma.] EYES: [Not pale not jaundiced afebrile to touch.] ENT: [ Normal.] NECK: [Supple,no tenderness,no lymphadenopathy,no masses,no thyromegaly ,no bruits, no JVD.] LUNGS: [Clear breath sounds bilaterally. No wheezes, rales, or rhonchi.] HEART: [Regular rate and rhythm. Normal S1 and S2, without murmurs, rub or gallop.] VASC: [No edema. Peripheral pulses normal and equal in all extremities.] ABD: [Bowel sounds present,soft, RUQ tender, no masses, no organomegaly.] : [Normal, no suprapubic tenderness.] LYMPH: [No lymphadenopathy noted.] EXT: [ Warm soft, non tender.] SKIN: [ No rashes or lesions.] NEURO: [ Awake Alert and oriented x3.] Vital Signs (last 8hr) Date Time Temp Pulse Resp B/P (MAP) Pulse Ox O2 Delivery O2 Flow Rate FiO2 04/24/25 08:28 139/52 04/24/25 08:00 97.9 60 19 190/87 98 Room Air 21 04/24/25 08:00 97.9 60 19 190/87 98 Room Air 21 04/24/25 04:00 98.1 67 20 138/68 96 Room Air LABORATORY: [ ] Hematology Labs: Test 04/24/25 05:21 04/23/25 15:13 Range/Units White Blood Count 5.8 4.8-10.8 K/uL Red Blood Count 3.82 L 4.00-5.50 MIL/uL Hemoglobin 11.3 L 12.0-16.0 g/dL Hematocrit 34.6 L 36-48 % Mean Corpuscular Volume 90.6 79-99 fL Mean Corpuscular Hemoglobin 29.6 27.0-33.0 pg Mean Corpuscular Hemoglobin Concent 32.7 32.0-36.0 g/dL Red Cell Distribution Width 13.6 11.0-15.5 % Platelet Count 228 130-400 K/uL Mean Platelet Volume 9.9 7.5-10.5 fL Immature Granulocyte % (Auto) 0.2 0-1 % Neutrophils (%) (Auto) 60.5 40.0-77.0 % Lymphocytes (%) (Auto) 26.4 21.0-51.0 % Monocytes (%) (Auto) 9.0 3.0-13.0 % Eosinophils (%) (Auto) 3.6 0.0-8.0 % Basophils (%) (Auto) 0.3 0.0-5.0 % Neutrophils # (Auto) 3.5 1.8-7.7 K/uL Lymphocytes # (Auto) 1.5 1.0-4.8 K/uL Monocytes # (Auto) 0.5 0.1-1.0 K/uL Eosinophils # (Auto) 0.21 0.00-0.70 K/uL Basophils # (Auto) 0.02 0.00-0.20 K/uL Absolute Immature Granulocyte (auto 0.01 0-1 K/uL Nucleated Red Blood Cells 0.0 0.0-0.19 % Erythrocyte Sedimentation Rate 28 0-30 MM/HR Chemistry Labs: Test 04/24/25 05:21 04/23/25 15:13 04/23/25 07:40 Range/Units Sodium Level 141 136-145 mmol/L Potassium Level 3.3 L 3.5-5.1 mmol/L Chloride Level 106 101-111 mmol/L Carbon Dioxide Level 28 21-32 mmol/L Blood Urea Nitrogen 11 7-18 mg/dL Creatinine 0.6 0.5-1.0 mg/dL Glomerular Filtration Rate Calc 107 >90 mL/min Random Glucose 105 70-105 mg/dL Total Calcium 8.3 L 8.5-10.1 mg/dL Magnesium Level 2.10 1.80-2.40 mg/dL Total Bilirubin 0.6 # 0.2-1.0 mg/dL Aspartate Amino Transf (AST/SGOT) 13 10-37 U/L Alanine Aminotransferase (ALT/SGPT) 29 12-78 U/L Alkaline Phosphatase 62 # 50-136 U/L Total Protein 6.4 6.0-8.3 g/dL Albumin 3.1 L 3.5-5.0 g/dL Hemoglobin A1c 5.7 4.0-6.0 % Estimated Average Glucose (eAG) 117 70-126 mg/dL C-Reactive Protein, Quantitative 10.90 H 0.5-3.0 mg/L Procalcitonin < 0.05 L 0.05-0.5 ng/mL Thyroid Stimulating Hormone (TSH) 0.66 0.36-3.74 uIU/mL Troponin I High Sensitivity < 4 L 4-50 ng/L Lipase 30 16-77 U/L Coagulation Labs: Test 04/23/25 15:13 Range/Units Prothrombin Time 10.7 9.6-11.6 SEC Prothromb Time International Ratio 1.01 0.85-1.15 Activated Partial Thromboplast Time 27.3 26.3-35.5 SEC DIAGNOSTICS / RADIOLOGY: [Copy/Paste Echos/Imaging Report here] ASSESSMENT: [] Acute cholecystitis Cholelithiasis PLAN: [] NPO/IVF/IV ANTIOBIOTICS Schedule for OR We talked about various treatment options including but not limited to surgery. We talked about risks and benefits of surgery, patient verbalized understanding has agreed to proceed [ ]. We will schedule [ ]. Robotic/laparoscopic cholecystectomy possible open JOSE ANTONIO ETIENNE MD Apr 24, 2025 11:29
--- NOTE | 2025-04-24 12:01 | PN ---
[facility] PROGRESS NOTE Date of Service: Apr 24, 2025 Time of Service: 11:57 SUBJECTIVE: Acute events reported overnight. REVIEW OF SYSTEMS CONSTITUTIONAL: Denies fevers, chills, or night sweats. No unintentional weight loss reported. NEUROLOGICAL: Denies headache, amaurosis fugax, motor weakness, sensory deficit, vertigo/spinning sensation, gait abnormalities, or tremors. ENT: No hearing loss, otalgia, otorrhea, rhinitis, rhinorrhea, hoarseness, or sore throat. CARDIOVASCULAR: Denies any exertional angina, dyspnea on exertion, orthopnea, paroxysmal nocturnal dyspnea, palpitations, life-threatening arrhythmias, claudication. PULMONARY: Denies any shortness of breath, cough, phlegm/sputum, hemoptysis, pleuritic chest pain. SLEEP: Denies morning headaches, daytime somnolence or napping. Denies difficulty falling asleep, staying asleep, waking from sleep. Denies knowledge of snoring. GASTROINTESTINAL: epigastric abdominal pain with nausea and vomiting today GENITOURINARY: Denies frequency, urgency, nocturia, hematuria or incontinence (Storage/Irritative symptoms.) Low urinary stream, straining to void, urinary intermittency or hesitancy, splitting of the voiding stream, terminal dribbling. ENDOCRINOLOGIC: Denies polyuria, polydipsia, polyphagia or heat/cold intolerances. HEMATOLOGIC: Denies thrombophilia/previous clots, or coagulopathy/bleeding disorders. ONCOLOGIC: Denies personal history of malignancy. DERMATOLOGIC: Denies rashes or pruritus. PSYCHIATRIC: Denies any suicidal or homicidal ideation. Denies hallucinations. PHYSICAL EXAM GENERAL APPEARANCE: The patient is awake, alert, and oriented, in no acute cardiopulmonary distress. NEUROLOGICAL: Cranial nerves II-XII grossly intact. Motor is 5/5 in bilateral upper and lower extremities proximal to distal. No sensory deficits. HEENT: Face is symmetric. Pupils are equal and reactive. Extraocular movements are intact. NECK: Supple. No JVD. No thyromegaly. No submental, submandibular, pre- /postauricular, occipital or supraclavicular lymphadenopathy. CHEST: Normal chest expansion. No Telemetry. LUNGS: Absence of any rales, rhonchi or any wheezing. CARDIOVASCULAR: Regular. S1 and S2 normal. No appreciable rubs, murmurs or gallops. ABDOMEN: Soft, nontender, and nondistended. There is no rebound, voluntary guarding, or rigidity. : Deferred. No Muhammad. EXTREMITIES: Non-edematous and not cyanotic. No clubbing. Good capillary refill. SKIN: No skin breakdown. Vital Signs (last 8hr) Date Time Temp Pulse Resp B/P (MAP) Pulse Ox O2 Delivery O2 Flow Rate FiO2 04/24/25 08:28 139/52 04/24/25 08:00 Room Air* 0 21 04/24/25 08:00 97.9 60 19 190/87 98 Room Air 21 04/24/25 08:00 97.9 60 19 190/87 98 Room Air 21 04/24/25 04:00 98.1 67 20 138/68 96 Room Air LABS: Laboratory: Test 04/24/25 05:21 04/23/25 15:13 04/23/25 08:10 04/23/25 07:40 Range/Units White Blood Count 5.8 4.8-10.8 K/uL Red Blood Count 3.82 L 4.00-5.50 MIL/uL Hemoglobin 11.3 L 12.0-16.0 g/dL Hematocrit 34.6 L 36-48 % Mean Corpuscular Volume 90.6 79-99 fL Mean Corpuscular Hemoglobin 29.6 27.0-33.0 pg Mean Corpuscular Hemoglobin Concent 32.7 32.0-36.0 g/dL Red Cell Distribution Width 13.6 11.0-15.5 % Platelet Count 228 130-400 K/uL Mean Platelet Volume 9.9 7.5-10.5 fL Immature Granulocyte % (Auto) 0.2 0-1 % Neutrophils (%) (Auto) 60.5 40.0-77.0 % Lymphocytes (%) (Auto) 26.4 21.0-51.0 % Monocytes (%) (Auto) 9.0 3.0-13.0 % Eosinophils (%) (Auto) 3.6 0.0-8.0 % Basophils (%) (Auto) 0.3 0.0-5.0 % Neutrophils # (Auto) 3.5 1.8-7.7 K/uL Lymphocytes # (Auto) 1.5 1.0-4.8 K/uL Monocytes # (Auto) 0.5 0.1-1.0 K/uL Eosinophils # (Auto) 0.21 0.00-0.70 K/uL Basophils # (Auto) 0.02 0.00-0.20 K/uL Absolute Immature Granulocyte (auto 0.01 0-1 K/uL Nucleated Red Blood Cells 0.0 0.0-0.19 % Sodium Level 141 136-145 mmol/L Potassium Level 3.3 L 3.5-5.1 mmol/L Chloride Level 106 101-111 mmol/L Carbon Dioxide Level 28 21-32 mmol/L Blood Urea Nitrogen 11 7-18 mg/dL Creatinine 0.6 0.5-1.0 mg/dL Glomerular Filtration Rate Calc 107 >90 mL/min Random Glucose 105 70-105 mg/dL Total Calcium 8.3 L 8.5-10.1 mg/dL Magnesium Level 2.10 1.80-2.40 mg/dL Total Bilirubin 0.6 # 0.2-1.0 mg/dL Aspartate Amino Transf (AST/SGOT) 13 10-37 U/L Alanine Aminotransferase (ALT/SGPT) 29 12-78 U/L Alkaline Phosphatase 62 # 50-136 U/L Total Protein 6.4 6.0-8.3 g/dL Albumin 3.1 L 3.5-5.0 g/dL Erythrocyte Sedimentation Rate 28 0-30 MM/HR Prothrombin Time 10.7 9.6-11.6 SEC Prothromb Time International Ratio 1.01 0.85-1.15 Activated Partial Thromboplast Time 27.3 26.3-35.5 SEC Hemoglobin A1c 5.7 4.0-6.0 % Estimated Average Glucose (eAG) 117 70-126 mg/dL C-Reactive Protein, Quantitative 10.90 H 0.5-3.0 mg/L Procalcitonin < 0.05 L 0.05-0.5 ng/mL Thyroid Stimulating Hormone (TSH) 0.66 0.36-3.74 uIU/mL Urine Color LIGHT-YELLOW YELLOW Urine Appearance CLOUDY H CLEAR Urine pH 6.5 5.0-8.0 Urine Specific [place] 1.018 1.001-1.031 Urine Protein NEGATIVE NEGATIVE mg/dL Urine Glucose (UA) NEGATIVE NEGATIVE mg/dL Urine Ketones NEGATIVE NEGATIVE mg/dL Urine Occult Blood NEGATIVE NEGATIVE Urine Nitrate 2+ H NEGATIVE Urine Bilirubin NEGATIVE NEGATIVE mg/dL Urine Urobilinogen 0.2 0.2-1.0 mg/dL Urine Leukocyte Esterase NEGATIVE NEGATIVE Yara/uL Urine RBC 0-1 0-1 /HPF Urine WBC 2-5 H 0-1 /HPF Urine Squamous Epithelial Cells RARE 0-2 /HPF Urine Non-Squamous Epithelial Cells 1 0-2 /HPF Urine Bacteria MANY None Seen /HPF Troponin I High Sensitivity < 4 L 4-50 ng/L Lipase 30 16-77 U/L Current Medications Medications (Trade) Dose Ordered Sig/Everette Route PRN Reason Start Time Stop Time Status Last Admin Dose Admin Acetaminophen (TYLenol 325MG TAB) 650 mg Q6H PRN PO MILD PAIN (1-3) 04/23/25 15:30 05/23/25 15:29 Enoxaparin Sodium (Lovenox) 40 mg HS SQ 04/23/25 21:00 05/23/25 20:59 04/23/25 19:59 40 MG Flecainide Acetate (Tambocor) 50 mg BID PO 04/23/25 21:00 05/23/25 20:59 04/24/25 08:56 50 MG Ketorolac Tromethamine (toRADol) 15 mg Q12H PRN IV MODERATE PAIN (4-6) 04/23/25 15:30 04/25/25 16:00 04/23/25 19:59 15 MG Lactated Ringer's 1,000 ml @ 100 mls/hr Q10H IV 04/23/25 15:00 05/23/25 14:59 04/24/25 11:15 100 MLS/HR Metoprolol Tartrate (loprESSOR) 50 mg BID PO 04/23/25 21:00 05/23/25 20:59 04/24/25 08:56 50 MG Morphine Sulfate (morPHINE 2MG SYG) 2 mg Q6H PRN IVP SEVERE PAIN (7-10) 04/23/25 15:30 04/30/25 15:29 Ondansetron HCl (zoFRAN 4MG INJ) 4 mg Q6H PRN IVP NAUSEA/VOMITING 04/23/25 15:30 05/23/25 15:29 Piperacillin Sod/ Tazobactam Sod (Zosyn 3.375gm+NS 50ml) 3.375 gm Q8H IVPB 04/23/25 15:30 05/03/25 15:29 04/24/25 06:33 3.375 GM Piperacillin Sod/ Tazobactam Sod (Zosyn 3.375gm+NS 50ml) 3.375 gm Q8H STAT IV 04/23/25 14:44 04/23/25 14:45 DC Potassium Chloride 100 ml @ 100 mls/hr AD PRN IV POTASSIUM PROTOCOL 04/24/25 08:30 05/24/25 08:29 Potassium Chloride (K-Dur/Klor-Con 20meq) 20 meq AD PRN PO POTASSIUM PROTOCOL 04/24/25 08:30 05/24/25 08:29 Potassium Chloride (KCl 10% Elixir 20meq/15ml) 20 meq AD PRN PO POTASSIUM PROTOCOL 04/24/25 08:30 05/24/25 08:29 DIAGNOSTICS / RADIOLOGY: [ ] ASSESSMENT: Biliary colic with cholelithiasis, POA Rule out developing acute cholecystitis, POA Underlying history of atrial fibrillation, POA Rule out urinary tract infection, POA Obesity, POA PLAN: Continue Zosyn Trend WBCs Continue pain management with Tylenol, Toradol, IV morphine O2 nasal cannula as needed Monitor blood pressure Follow up with Cardiology, appreciate assistance -continue flecainide -recommend [id number] mg daily post surgery -though cardiac risk for proposed cholecystectomy NPO for now No need for GI prophylaxis No need for IV fluids Trend a.m. BMP Replete electrolytes as necessary DVT prophylaxis with Lovenox Trend a.m. CBC Follow up with With General surgery Full code Case was discussed with patient's nurse at bedside Attention time greater than 30 minutes RAI SALINAS IV, MD Apr 24, 2025 12:01
--- NOTE | 2025-04-24 13:01 | CONS ---
[facility] CARDIOLOGY CONSULTATION NOTE Date Patient Seen: Apr 24, 2025 Time of Visit: 12:55 Reason for Consultation: preoperative cardiac eval History of Present Illness: Patient is a 54-year-old female with a past medical history of paroxysmal atrial fibrillation, diagnosed in August of 2020 during hospitalization. She continued to be symptomatic after initially being placed on metoprolol, with Holter showing three episodes of atrial fibrillation with rapid ventricular response, for which reason flecainide was added to her therapy. Since that time constant she has been asymptomatic. She is not on therapeutic anticoagulation. She has refused consideration of ablation in the past. She presents with complaints of epigastric abdominal pain, diagnosed with cholelithiasis and pending HIDA scan for consideration of cholecystitis diagnosis. Cardiology consultation requested for preoperative cardiovascular risk assessment prior to considering cholecystectomy. Past Medical History: Paroxysmal atrial fibrillation Mild left atrial enlargement Past Surgical History: Denies Family History: Denies Social History: Nonsmoker, independent with ADLs Home Meds: Taking Chelsi 500 MG Capsule as directed Orally , Taking Turmeric 500 MG Capsule as directed Orally , Taking Cayenne Pepper , Taking Vitamin C 500 MG Capsule as directed Orally , Taking Flecainide Acetate 50 MG Tablet 1 tab Orally twice a day , Taking Metoprolol Tartrate 50 MG Tablet 1 tablet with food Orally Twice a day Current Meds: Current Medications Medications Dose Ordered Sig/Everette Start Time Stop Time Status Last Admin Lactated Ringer's 1,000 ml @ 100 mls/hr Q10H 04/23/25 15:00 05/23/25 14:59 04/24/25 11:15 Acetaminophen 650 mg Q6H PRN 04/23/25 15:30 05/23/25 15:29 04/24/25 12:18 Ondansetron HCl 4 mg Q6H PRN 04/23/25 15:30 05/23/25 15:29 Morphine Sulfate 2 mg Q6H PRN 04/23/25 15:30 04/30/25 15:29 Ketorolac Tromethamine 15 mg Q12H PRN 04/23/25 15:30 04/25/25 16:00 04/23/25 19:59 Piperacillin Sod/ Tazobactam Sod 3.375 gm Q8H 04/23/25 15:30 05/03/25 15:29 04/24/25 06:33 Metoprolol Tartrate 50 mg BID 04/23/25 21:00 05/23/25 20:59 04/24/25 08:56 Flecainide Acetate 50 mg BID 04/23/25 21:00 05/23/25 20:59 04/24/25 08:56 Enoxaparin Sodium 40 mg HS 04/23/25 21:00 05/23/25 20:59 04/23/25 19:59 Potassium Chloride 100 ml @ 100 mls/hr AD PRN 04/24/25 08:30 05/24/25 08:29 Potassium Chloride 20 meq AD PRN 04/24/25 08:30 05/24/25 08:29 Potassium Chloride 20 meq AD PRN 04/24/25 08:30 05/24/25 08:29 Review of Systems: epigastric abdominal pain No palpitations, shortness for breath orthopnea PND or lower extremity edema. No chest pain. No bleeding or bruising. Physical Examination: GENERAL: [No acute distress.] HEAD: [Normal with no signs of head trauma.] NECK: [ Normal carotid upstrokes without bruits.] LUNGS: [Clear breath sounds bilaterally. There are right basilar rales one third of the way up the chest. No wheezes, or rhonchi.] HEART: [Normal rate and rhythm. Normal S1 and S2 without murmurs, gallop or rub.] VASC: [Peripheral pulses +2 bilaterally.] ABD: [Soft, nontender, no guarding] EXT: [No clubbing, cyanosis or edema.] SKIN: [No rashes or lesions noted.] NEURO: [Awake, alert, and oriented x3. No focal sensory or strength deficits noted.] Vital Signs (last 8hr) Date Time Temp Pulse Resp B/P (MAP) Pulse Ox O2 Delivery O2 Flow Rate FiO2 04/24/25 12:00 98.1 52 19 140/58 98 Room Air 21 04/24/25 08:28 139/52 04/24/25 08:00 Room Air* 0 21 04/24/25 08:00 97.9 60 19 190/87 98 Room Air 21 04/24/25 08:00 97.9 60 19 190/87 98 Room Air 21 Laboratory: [ ] Hematology Labs: Test 04/24/25 05:21 04/23/25 15:13 Range/Units White Blood Count 5.8 4.8-10.8 K/uL Red Blood Count 3.82 L 4.00-5.50 MIL/uL Hemoglobin 11.3 L 12.0-16.0 g/dL Hematocrit 34.6 L 36-48 % Mean Corpuscular Volume 90.6 79-99 fL Mean Corpuscular Hemoglobin 29.6 27.0-33.0 pg Mean Corpuscular Hemoglobin Concent 32.7 32.0-36.0 g/dL Red Cell Distribution Width 13.6 11.0-15.5 % Platelet Count 228 130-400 K/uL Mean Platelet Volume 9.9 7.5-10.5 fL Immature Granulocyte % (Auto) 0.2 0-1 % Neutrophils (%) (Auto) 60.5 40.0-77.0 % Lymphocytes (%) (Auto) 26.4 21.0-51.0 % Monocytes (%) (Auto) 9.0 3.0-13.0 % Eosinophils (%) (Auto) 3.6 0.0-8.0 % Basophils (%) (Auto) 0.3 0.0-5.0 % Neutrophils # (Auto) 3.5 1.8-7.7 K/uL Lymphocytes # (Auto) 1.5 1.0-4.8 K/uL Monocytes # (Auto) 0.5 0.1-1.0 K/uL Eosinophils # (Auto) 0.21 0.00-0.70 K/uL Basophils # (Auto) 0.02 0.00-0.20 K/uL Absolute Immature Granulocyte (auto 0.01 0-1 K/uL Nucleated Red Blood Cells 0.0 0.0-0.19 % Erythrocyte Sedimentation Rate 28 0-30 MM/HR Chemistry Labs: Test 04/24/25 05:21 04/23/25 15:13 04/23/25 07:40 Range/Units Sodium Level 141 136-145 mmol/L Potassium Level 3.3 L 3.5-5.1 mmol/L Chloride Level 106 101-111 mmol/L Carbon Dioxide Level 28 21-32 mmol/L Blood Urea Nitrogen 11 7-18 mg/dL Creatinine 0.6 0.5-1.0 mg/dL Glomerular Filtration Rate Calc 107 >90 mL/min Random Glucose 105 70-105 mg/dL Total Calcium 8.3 L 8.5-10.1 mg/dL Magnesium Level 2.10 1.80-2.40 mg/dL Total Bilirubin 0.6 # 0.2-1.0 mg/dL Aspartate Amino Transf (AST/SGOT) 13 10-37 U/L Alanine Aminotransferase (ALT/SGPT) 29 12-78 U/L Alkaline Phosphatase 62 # 50-136 U/L Total Protein 6.4 6.0-8.3 g/dL Albumin 3.1 L 3.5-5.0 g/dL Hemoglobin A1c 5.7 4.0-6.0 % Estimated Average Glucose (eAG) 117 70-126 mg/dL C-Reactive Protein, Quantitative 10.90 H 0.5-3.0 mg/L Procalcitonin < 0.05 L 0.05-0.5 ng/mL Thyroid Stimulating Hormone (TSH) 0.66 0.36-3.74 uIU/mL Troponin I High Sensitivity < 4 L 4-50 ng/L Lipase 30 16-77 U/L Coagulation Labs: Test 04/23/25 15:13 Range/Units Prothrombin Time 10.7 9.6-11.6 SEC Prothromb Time International Ratio 1.01 0.85-1.15 Activated Partial Thromboplast Time 27.3 26.3-35.5 SEC Diagnostics / Radiology: IMPRESSION: 1. Cholelithiasis, gallbladder distention, and trace pericholecystic free fluid or findings concerning for acute cholecystitis. Recommend a hepatobiliary (HIDA) scan for further evaluation. 2. Hepatomegaly and hepatic steatosis. /Colby DICTATED BY: MEHREEN LAMB Jr., MD DATE: 04/23/25 1622 Assessment: Preoperative cardiovascular assessment Cholelithiasis Hepatic steatosis Paroxysmal atrial fibrillation, not no anticoagulation Echocardiogram 04/26/2023 which demonstrates an ejection fraction of 60 to 65% with normal diastolic filling pattern, normal-sized left atrium, and mild pulmonic valve regurgitation.. Plan: Patient currently in normal sinus rhythm. She is asymptomatic from an atrial fibrillation standpoint. Due to low CHADS-VASc score, she does not require therapeutic anticoagulation however do recommend 81 mg daily aspirin therapy, however this can be initiated post recovery from her surgery. Recommend we can continue the antiarrhythmic flecainide in the perioperative. Provided she is able to take p.o.. No additional testing from a cardiac standpoint prior to undergoing proposed cholecystectomy as low cardiac risk. She can continue her routine follow up with Dr. Lane/JAIME Osborne in the outpatient setting. PASCALE CHAVEZ DO Apr 24, 2025 13:01
[2025-04-25] VITALS (26 sets, daily range): BP systolic 116–163; BP diastolic 52–79; PULSE 49–76; RESP 15–20; TEMP 97.4–98.6; O2SAT 97
[2025-04-25 05:25] LABS: NUCLEATED RED BLOOD CELLS 0.0 % (0.0-0.19); PLATELET COUNT (AUTO) 204.0 K/uL (130-400); RED BLOOD CELL COUNT(AUTO) 3.85 MIL/uL (4.00-5.50); RED CELL DISTRIBUTION WIDTH 13.4 % (11.0-15.5); WHITE BLOOD COUNT (AUTO) 4.9 K/uL (4.8-10.8)
[2025-04-25 05:41] LABS: ASPARTATE AMINOTRANSFERASE 21.0 U/L (10-37); CREATININE 0.7 mg/dL (0.5-1.0); GLOMERULAR FILTR. RATE CALC 103.0 mL/min (>90); GLUCOSE,RANDOM 94.0 mg/dL (70-105); SODIUM SERUM 141.0 mmol/L (136-145); TOTAL PROTEIN, SERUM 6.6 g/dL (6.0-8.3); UREA NITROGEN, BLOOD 8.0 mg/dL (7-18)
--- NOTE | 2025-04-25 08:25 | NUR ---
Patient on route to OR holding. Ravi transporting patient.
[2025-04-25] MEDS ORDERED: MIDAZOLAM HCL 1 MG/ML 2ML VIAL ONE (09:13)
[2025-04-25] MEDS ORDERED: SUCCINYLCHOLINE CHLORIDE 20 MG/ML 10 ML VIAL ONE (09:13)
[2025-04-25] MEDS ORDERED: LIDOCAINE 1%-EPI 1:100,000 20 ML VIAL ONE (09:34)
--- NOTE | 2025-04-25 10:35 | OP ---
DATE OF SERVICE: 04/25/2025 PREOPERATIVE DIAGNOSES: Acute cholecystitis Cholelithiasis POSTOPERATIVE DIAGNOSES: Acute cholecystitis Cholelithiasis PROCEDURE PERFORMED: Laparoscopic cholecystectomy. SURGEON: Jose Antonio Haywood MD ANESTHESIA: General. ESTIMATED BLOOD LOSS: Minimal. FINDINGS: 1. Severe right upper quadrant inflammatory adhesions. 2. Enlarged tense gallbladder. 3. Cholelithiasis. 4. Thick edematous gallbladder wall SPECIMEN REMOVED: Gallbladder. COMPLICATIONS: None. DESCRIPTION OF PROCEDURE: The patient was brought into the operating room. After proper identification, the patient was placed on operating table in the supine position. General anesthesia was administered and the patient was endotracheally intubated. Attention was then focus in the area of the abdomen. The same was prepped and draped in the usual sterile fashion. An appropriate timeout was then carried out at this point. Then I proceeded by making a supraumbilical incision. The incision was carried through the skin and subcutaneous tissue until the fascia was identified. The fascia was then carefully incised. Stay stitches were placed on either side of the fascia and the abdominal cavity was entered. The Faviola port was then introduced. CO2 was insufflated into the abdomen and the laparoscope was introduced. Inspection of the abdomen showed evidence of severe right upper quadrant inflammatory adhesions and large gallbladder. Three additional ports were then placed, one in the epigastric region 2 in the right upper quadrant. The patient was then placed in reverse Trendelenburg position rotated to the left. A grasper was then used to grasp the fundus of the gallbladder and the same was retracted cephalad and the inflammatory adhesions in the right upper quadrant was then carefully taken down using the Bovie cautery. At the infundibulum same was retracted lateral and the peritoneal covering the triangle of Calot was then carefully opened. The cystic duct and the cystic artery were then identified. Each of these structures were then carefully skeletonized for a distance of about 2 cm. Proximal distal clippings were then applied in each of these structures were then transected between clips. The gallbladder was then removed from the gallbladder fossa using the Bovie cautery, care taken not to injure the liver. The gallbladder was then extracted from the abdomen using an Endopouch. Copious amounts of irrigation was carried out at this point. Hemostasis was noted to be adequate. So, at this point, I proceeded by closing the wound. Ports were withdrawn under vision. CO2 was let out of the abdomen. Supraumbilical fascia was approximated together using 0 Vicryl [id number] stitches and the skin was approximated together using 4-0 Monocryl subcuticular closure. Steri-Strips and sterile dressings were then applied. Instrument and sponge count was taken found to be correct 2. The patient was then woken up, extubated and taken to the recovery room in stable condition. The patient tolerated the procedure well. JOSE ANTONIO GRIGSBY MD Apr 25, 2025 10:35
--- NOTE | 2025-04-25 10:38 | PN ---
[facility] PROGRESS NOTE Date of Service: Apr 25, 2025 Time of Service: 10:38 SUBJECTIVE: Patient's pain is well-controlled. Patient is postop. No complications reported. Acute events reported overnight. REVIEW OF SYSTEMS CONSTITUTIONAL: Denies fevers, chills, or night sweats. No unintentional weight loss reported. NEUROLOGICAL: Denies headache, amaurosis fugax, motor weakness, sensory deficit, vertigo/spinning sensation, gait abnormalities, or tremors. ENT: No hearing loss, otalgia, otorrhea, rhinitis, rhinorrhea, hoarseness, or sore throat. CARDIOVASCULAR: Denies any exertional angina, dyspnea on exertion, orthopnea, paroxysmal nocturnal dyspnea, palpitations, life-threatening arrhythmias, claudication. PULMONARY: Denies any shortness of breath, cough, phlegm/sputum, hemoptysis, pleuritic chest pain. SLEEP: Denies morning headaches, daytime somnolence or napping. Denies difficulty falling asleep, staying asleep, waking from sleep. Denies knowledge of snoring. GASTROINTESTINAL: epigastric abdominal pain with nausea and vomiting today GENITOURINARY: Denies frequency, urgency, nocturia, hematuria or incontinence (Storage/Irritative symptoms.) Low urinary stream, straining to void, urinary intermittency or hesitancy, splitting of the voiding stream, terminal dribbling. ENDOCRINOLOGIC: Denies polyuria, polydipsia, polyphagia or heat/cold intolerances. HEMATOLOGIC: Denies thrombophilia/previous clots, or coagulopathy/bleeding disorders. ONCOLOGIC: Denies personal history of malignancy. DERMATOLOGIC: Denies rashes or pruritus. PSYCHIATRIC: Denies any suicidal or homicidal ideation. Denies hallucinations. PHYSICAL EXAM GENERAL APPEARANCE: The patient is awake, alert, and oriented, in no acute cardiopulmonary distress. NEUROLOGICAL: Cranial nerves II-XII grossly intact. Motor is 5/5 in bilateral upper and lower extremities proximal to distal. No sensory deficits. HEENT: Face is symmetric. Pupils are equal and reactive. Extraocular movements are intact. NECK: Supple. No JVD. No thyromegaly. No submental, submandibular, pre- /postauricular, occipital or supraclavicular lymphadenopathy. CHEST: Normal chest expansion. No Telemetry. LUNGS: Absence of any rales, rhonchi or any wheezing. CARDIOVASCULAR: Regular. S1 and S2 normal. No appreciable rubs, murmurs or gallops. ABDOMEN: Soft, nontender, and nondistended. There is no rebound, voluntary guarding, or rigidity. : Deferred. No Muhammad. EXTREMITIES: Non-edematous and not cyanotic. No clubbing. Good capillary refill. SKIN: No skin breakdown. Vital Signs (last 8hr) Date Time Temp Pulse Resp B/P (MAP) Pulse Ox O2 Delivery O2 Flow Rate FiO2 04/25/25 08:00 97.9 49 17 148/67 97 Room Air 04/25/25 03:53 98.4 56 16 133/74 98 Room Air LABS: Laboratory: Test 04/25/25 05:09 04/24/25 05:21 04/23/25 15:13 Range/Units White Blood Count 4.9 4.8-10.8 K/uL Red Blood Count 3.85 L 4.00-5.50 MIL/uL Hemoglobin 11.6 L 12.0-16.0 g/dL Hematocrit 35.5 L 36-48 % Mean Corpuscular Volume 92.2 79-99 fL Mean Corpuscular Hemoglobin 30.1 27.0-33.0 pg Mean Corpuscular Hemoglobin Concent 32.7 32.0-36.0 g/dL Red Cell Distribution Width 13.4 11.0-15.5 % Platelet Count 204 130-400 K/uL Mean Platelet Volume 9.9 7.5-10.5 fL Nucleated Red Blood Cells 0.0 0.0-0.19 % Sodium Level 141 136-145 mmol/L Potassium Level 3.3 L 3.5-5.1 mmol/L Chloride Level 106 101-111 mmol/L Carbon Dioxide Level 30 21-32 mmol/L Blood Urea Nitrogen 8 7-18 mg/dL Creatinine 0.7 0.5-1.0 mg/dL Glomerular Filtration Rate Calc 103 >90 mL/min Random Glucose 94 70-105 mg/dL Total Calcium 8.5 8.5-10.1 mg/dL Total Bilirubin 0.5 0.2-1.0 mg/dL Aspartate Amino Transf (AST/SGOT) 21 10-37 U/L Alanine Aminotransferase (ALT/SGPT) 36 # 12-78 U/L Alkaline Phosphatase 59 50-136 U/L Total Protein 6.6 6.0-8.3 g/dL Albumin 3.2 L 3.5-5.0 g/dL Immature Granulocyte % (Auto) 0.2 0-1 % Neutrophils (%) (Auto) 60.5 40.0-77.0 % Lymphocytes (%) (Auto) 26.4 21.0-51.0 % Monocytes (%) (Auto) 9.0 3.0-13.0 % Eosinophils (%) (Auto) 3.6 0.0-8.0 % Basophils (%) (Auto) 0.3 0.0-5.0 % Neutrophils # (Auto) 3.5 1.8-7.7 K/uL Lymphocytes # (Auto) 1.5 1.0-4.8 K/uL Monocytes # (Auto) 0.5 0.1-1.0 K/uL Eosinophils # (Auto) 0.21 0.00-0.70 K/uL Basophils # (Auto) 0.02 0.00-0.20 K/uL Absolute Immature Granulocyte (auto 0.01 0-1 K/uL Magnesium Level 2.10 1.80-2.40 mg/dL Erythrocyte Sedimentation Rate 28 0-30 MM/HR Prothrombin Time 10.7 9.6-11.6 SEC Prothromb Time International Ratio 1.01 0.85-1.15 Activated Partial Thromboplast Time 27.3 26.3-35.5 SEC Hemoglobin A1c 5.7 4.0-6.0 % Estimated Average Glucose (eAG) 117 70-126 mg/dL C-Reactive Protein, Quantitative 10.90 H 0.5-3.0 mg/L Procalcitonin < 0.05 L 0.05-0.5 ng/mL Thyroid Stimulating Hormone (TSH) 0.66 0.36-3.74 uIU/mL Current Medications Medications (Trade) Dose Ordered Sig/Everette Route PRN Reason Start Time Stop Time Status Last Admin Dose Admin Acetaminophen (TYLenol 325MG TAB) 650 mg Q6H PRN PO MILD PAIN (1-3) 04/23/25 15:30 05/23/25 15:29 04/24/25 23:03 650 MG Enoxaparin Sodium (Lovenox) 40 mg HS SQ 04/23/25 21:00 05/23/25 20:59 04/23/25 19:59 40 MG Flecainide Acetate (Tambocor) 50 mg BID PO 04/23/25 21:00 05/23/25 20:59 04/24/25 21:06 50 MG Ketorolac Tromethamine (toRADol) 15 mg Q12H PRN IV MODERATE PAIN (4-6) 04/23/25 15:30 04/25/25 16:00 04/23/25 19:59 15 MG Lactated Ringer's 1,000 ml @ 100 mls/hr Q10H IV 04/23/25 15:00 04/24/25 21:00 DC 04/24/25 21:06 100 MLS/HR Metoprolol Tartrate (loprESSOR) 50 mg BID PO 04/23/25 21:00 05/23/25 20:59 04/24/25 21:06 50 MG Morphine Sulfate (morPHINE 2MG SYG) 2 mg Q6H PRN IVP SEVERE PAIN (7-10) 04/23/25 15:30 04/30/25 15:29 Ondansetron HCl (zoFRAN 4MG INJ) 4 mg Q6H PRN IVP NAUSEA/VOMITING 04/23/25 15:30 05/23/25 15:29 Piperacillin Sod/ Tazobactam Sod (Zosyn 3.375gm+NS 50ml) 3.375 gm Q8H IVPB 04/23/25 15:30 05/03/25 15:29 04/25/25 06:37 3.375 GM Piperacillin Sod/ Tazobactam Sod (Zosyn 3.375gm+NS 50ml) 3.375 gm Q8H STAT IV 04/23/25 14:44 04/23/25 14:45 DC Potassium Chloride 100 ml @ 100 mls/hr AD PRN IV POTASSIUM PROTOCOL 04/24/25 08:30 05/24/25 08:29 Potassium Chloride (K-Dur/Klor-Con 20meq) 20 meq AD PRN PO POTASSIUM PROTOCOL 04/24/25 08:30 05/24/25 08:29 Potassium Chloride (KCl 10% Elixir 20meq/15ml) 20 meq AD PRN PO POTASSIUM PROTOCOL 04/24/25 08:30 05/24/25 08:29 DIAGNOSTICS / RADIOLOGY: [ ] ASSESSMENT: Biliary colic with cholelithiasis, POA Rule out developing acute cholecystitis, POA Underlying history of atrial fibrillation, POA Rule out urinary tract infection, POA Obesity, POA PLAN: Continue Zosyn Trend WBCs Continue pain management with Tylenol, Toradol, IV morphine O2 nasal cannula as needed Monitor blood pressure Follow up with Cardiology, appreciate assistance -continue flecainide -recommend aspirin 81 mg daily post surgery -low cardiac risk for proposed cholecystectomy Diet as per surgery No need for GI prophylaxis No need for IV fluids Trend a.m. BMP Replete electrolytes as necessary DVT prophylaxis with Lovenox Trend a.m. CBC Follow up with With General surgery Full code Case was discussed with patient's nurse at bedside Attention time greater than 30 minutes RAI SALINAS IV, MD Apr 25, 2025 10:38
--- NOTE | 2025-04-25 11:24 | NUR ---
REPORT RECEIVED FROM RECOVERY NURSE TREMAINE BELLE.
--- NOTE | 2025-04-25 11:38 | NUR ---
PATIENT RETURNED TO ROOM. 2L NC 99%
[2025-04-25] MEDS: INDOCYANINE GREEN 25 MG VIAL IJ ONE (11:45)
[2025-04-25] MEDS: 0.9%NACL 1000ML 1,000 ML IV SCH (12:14)
[2025-04-25] MEDS: PoTASSium chloRIDE 20MEQ ER 20 MEQ ERTAB PO PRN (14:31)
[2025-04-25] MEDS: PoTASSium chl 10% ELIXIR 20MEQ 20 MEQ/15 ML UDCUP PO PRN (17:08)
[2025-04-25] MEDS ORDERED: FLEC50TA3 PO (19:17)
[2025-04-25] MEDS ORDERED: METO50 PO (19:17)
--- NOTE | 2025-04-25 21:41 | HMCIMG ---
Examination Hepatobiliary study History r/o achute cholecytsisi, cholethiasis, biliary colic (Hx) / r/o achute cholecytsisi, cholethiasis, biliary colic, Statics (DICOM Hx) (DICOM Hx) Technique Tc-99m mebrofenin were administered intravenously followed by acquisition of planar images of the abdomen. Findings Following administration of radiotracer, there is prompt appearance of normal hepatic contours, followed by appearance of activity in unremarkable appearing bile ducts. There is nonvisualization of the gallbladder at the completion of the examination suggesting acute cholecystitis. IMPRESSION: 1. Nonvisualization of gallbladder suggesting acute cholecystitis. /[employer]use
[2025-04-26] VITALS (8 sets, daily range): BP systolic 95–162; BP diastolic 56–82; PULSE 54–77; RESP 16–19; TEMP 97.7–98.7; O2SAT 95–100
[2025-04-26 04:22] LABS: NUCLEATED RED BLOOD CELLS 0.0 % (0.0-0.19); PLATELET COUNT (AUTO) 223.0 K/uL (130-400); RED BLOOD CELL COUNT(AUTO) 3.96 MIL/uL (4.00-5.50); RED CELL DISTRIBUTION WIDTH 13.2 % (11.0-15.5); WHITE BLOOD COUNT (AUTO) 8.2 K/uL (4.8-10.8)
[2025-04-26 04:53] LABS: ASPARTATE AMINOTRANSFERASE 36.0 U/L (10-37); CREATININE 0.7 mg/dL (0.5-1.0); GLOMERULAR FILTR. RATE CALC 103.0 mL/min (>90); GLUCOSE,RANDOM 104.0 mg/dL (70-105); SODIUM SERUM 139.0 mmol/L (136-145); TOTAL PROTEIN, SERUM 6.9 g/dL (6.0-8.3); UREA NITROGEN, BLOOD 5.0 mg/dL (7-18)
--- NOTE | 2025-04-26 11:47 | PN ---
GENERAL SURGERY PROGRESS NOTE DATE OF SERVICE: Apr 26, 2025 TIME OF SERVICE: 11:47 No new issues Tolerating diet Ambulating PROBLEM LISTS: [ ] INTERVAL HISTORY: [ ] S/p laparoscopic cholecystectomy PHYSICAL EXAMINATION: GENERAL: [Patient is lying comfortably in bed, not in any obvious distress.] HEAD: [Normal with no signs of head trauma.] EYES: [Not pale not jaundiced afebrile to touch.] ENT: [ Normal.] NECK: [Supple,no tenderness,no lymphadenopathy,no masses,no thyromegaly ,no bruits, no JVD.] LUNGS: [Clear breath sounds bilaterally. No wheezes, rales, or rhonchi.] HEART: [Regular rate and rhythm. Normal S1 and S2, without murmurs, rub or gallop.] VASC: [No edema. Peripheral pulses normal and equal in all extremities.] ABD: [Bowel sounds present,soft, dressings in place : [Normal, no suprapubic tenderness.] LYMPH: [No lymphadenopathy noted.] EXT: [ Warm soft, non tender.] SKIN: [ No rashes or lesions.] NEURO: [ Awake Alert and oriented x3.] LABORATORY: [ ] Hematology Labs: Test 04/26/25 04:13 Range/Units White Blood Count 8.2 # 4.8-10.8 K/uL Red Blood Count 3.96 L 4.00-5.50 MIL/uL Hemoglobin 11.8 L 12.0-16.0 g/dL Hematocrit 35.5 L 36-48 % Mean Corpuscular Volume 89.6 79-99 fL Mean Corpuscular Hemoglobin 29.8 27.0-33.0 pg Mean Corpuscular Hemoglobin Concent 33.2 32.0-36.0 g/dL Red Cell Distribution Width 13.2 11.0-15.5 % Platelet Count 223 130-400 K/uL Mean Platelet Volume 10.2 7.5-10.5 fL Nucleated Red Blood Cells 0.0 0.0-0.19 % Chemistry Labs: Test 04/26/25 04:13 Range/Units Sodium Level 139 136-145 mmol/L Potassium Level 3.9 3.5-5.1 mmol/L Chloride Level 104 101-111 mmol/L Carbon Dioxide Level 26 21-32 mmol/L Blood Urea Nitrogen 5 L 7-18 mg/dL Creatinine 0.7 0.5-1.0 mg/dL Glomerular Filtration Rate Calc 103 >90 mL/min Random Glucose 104 70-105 mg/dL Total Calcium 9.0 8.5-10.1 mg/dL Total Bilirubin 0.6 0.2-1.0 mg/dL Aspartate Amino Transf (AST/SGOT) 36 10-37 U/L Alanine Aminotransferase (ALT/SGPT) 52 # 12-78 U/L Alkaline Phosphatase 61 50-136 U/L Total Protein 6.9 6.0-8.3 g/dL Albumin 3.4 L 3.5-5.0 g/dL DIAGNOSTICS / RADIOLOGY: [Copy/Paste Echos/Imaging Report here] ASSESSMENT: [] Acute cholecystitis Cholelithiasis S/p laparoscopic cholecystectomy Overall doing well PLAN: Continue present management JOSE ANTONIO GRIGSBY MD Apr 26, 2025 11:47
--- NOTE | 2025-04-26 14:01 | PN ---
[facility] PROGRESS NOTE Date of Service: Apr 26, 2025 Time of Service: 13:59 SUBJECTIVE: Patient's pain is well-controlled. Patient is postop. No complications reported. Acute events reported overnight. 04/26 patient is seen and examined at bedside, case discussed with the RN, no acute events overnight, patient is status post laparoscopic cholecystectomy 04/25/2025, tolerated procedure well, the time of my visit on IV fluids, IV antibiotics, passing gas, she feels weak, hemoglobin stable at 11.8, hematocrit 35.5. Potassium level was at 3.3, now corrected at 3.9. Liver enzymes unremarkable. Anticipate discharge home in the next 24 hours per patient's request. REVIEW OF SYSTEMS CONSTITUTIONAL: Denies fevers, chills, or night sweats. No unintentional weight loss reported. NEUROLOGICAL: Denies headache, amaurosis fugax, motor weakness, sensory deficit, vertigo/spinning sensation, gait abnormalities, or tremors. ENT: No hearing loss, otalgia, otorrhea, rhinitis, rhinorrhea, hoarseness, or sore throat. CARDIOVASCULAR: Denies any exertional angina, dyspnea on exertion, orthopnea, paroxysmal nocturnal dyspnea, palpitations, life-threatening arrhythmias, claudication. PULMONARY: Denies any shortness of breath, cough, phlegm/sputum, hemoptysis, pleuritic chest pain. SLEEP: Denies morning headaches, daytime somnolence or napping. Denies difficulty falling asleep, staying asleep, waking from sleep. Denies knowledge of snoring. GASTROINTESTINAL: epigastric abdominal pain with nausea and vomiting today GENITOURINARY: Denies frequency, urgency, nocturia, hematuria or incontinence (Storage/Irritative symptoms.) Low urinary stream, straining to void, urinary intermittency or hesitancy, splitting of the voiding stream, terminal dribbling. ENDOCRINOLOGIC: Denies polyuria, polydipsia, polyphagia or heat/cold intolerances. HEMATOLOGIC: Denies thrombophilia/previous clots, or coagulopathy/bleeding disorders. ONCOLOGIC: Denies personal history of malignancy. DERMATOLOGIC: Denies rashes or pruritus. PSYCHIATRIC: Denies any suicidal or homicidal ideation. Denies hallucinations. PHYSICAL EXAM GENERAL APPEARANCE: The patient is awake, alert, and oriented, in no acute cardiopulmonary distress. NEUROLOGICAL: Cranial nerves II-XII grossly intact. Motor is 5/5 in bilateral upper and lower extremities proximal to distal. No sensory deficits. HEENT: Face is symmetric. Pupils are equal and reactive. Extraocular movements are intact. NECK: Supple. No JVD. No thyromegaly. No submental, submandibular, pre- /postauricular, occipital or supraclavicular lymphadenopathy. CHEST: Normal chest expansion. No Telemetry. LUNGS: Absence of any rales, rhonchi or any wheezing. CARDIOVASCULAR: Regular. S1 and S2 normal. No appreciable rubs, murmurs or gallops. ABDOMEN: Soft, nontender, and nondistended. There is no rebound, voluntary guarding, or rigidity. : Deferred. No Muhammad. EXTREMITIES: Non-edematous and not cyanotic. No clubbing. Good capillary ref ill. SKIN: No skin breakdown. Vital Signs (last 8hr) Date Time Temp Pulse Resp B/P (MAP) Pulse Ox O2 Delivery O2 Flow Rate FiO2 04/26/25 11:38 98.1 54 19 143/58 97 Room Air 04/26/25 07:42 97.7 63 18 155/64 100 Room Air LABS: Laboratory: Test 04/26/25 04:13 Range/Units White Blood Count 8.2 # 4.8-10.8 K/uL Red Blood Count 3.96 L 4.00-5.50 MIL/uL Hemoglobin 11.8 L 12.0-16.0 g/dL Hematocrit 35.5 L 36-48 % Mean Corpuscular Volume 89.6 79-99 fL Mean Corpuscular Hemoglobin 29.8 27.0-33.0 pg Mean Corpuscular Hemoglobin Concent 33.2 32.0-36.0 g/dL Red Cell Distribution Width 13.2 11.0-15.5 % Platelet Count 223 130-400 K/uL Mean Platelet Volume 10.2 7.5-10.5 fL Nucleated Red Blood Cells 0.0 0.0-0.19 % Sodium Level 139 136-145 mmol/L Potassium Level 3.9 3.5-5.1 mmol/L Chloride Level 104 101-111 mmol/L Carbon Dioxide Level 26 21-32 mmol/L Blood Urea Nitrogen 5 L 7-18 mg/dL Creatinine 0.7 0.5-1.0 mg/dL Glomerular Filtration Rate Calc 103 >90 mL/min Random Glucose 104 70-105 mg/dL Total Calcium 9.0 8.5-10.1 mg/dL Total Bilirubin 0.6 0.2-1.0 mg/dL Aspartate Amino Transf (AST/SGOT) 36 10-37 U/L Alanine Aminotransferase (ALT/SGPT) 52 # 12-78 U/L Alkaline Phosphatase 61 50-136 U/L Total Protein 6.9 6.0-8.3 g/dL Albumin 3.4 L 3.5-5.0 g/dL Current Medications Medications (Trade) Dose Ordered Sig/Everette Route PRN Reason Start Time Stop Time Status Last Admin Dose Admin Acetaminophen (TYLenol 325MG TAB) 650 mg Q6H PRN PO MILD PAIN (1-3) 04/23/25 15:30 05/23/25 15:29 04/24/25 23:03 650 MG Enoxaparin Sodium (Lovenox) 40 mg HS SQ 04/23/25 21:00 05/23/25 20:59 04/25/25 20:24 40 MG Flecainide Acetate (Tambocor) 50 mg BID PO 04/23/25 21:00 05/23/25 20:59 04/26/25 10:14 50 MG Hydralazine HCl (APRESOLine 20MG INJ) 5 mg Q6H PRN IV ADMINISTER FOR SBP > 160 04/26/25 13:00 05/26/25 12:59 Hydromorphone HCl (DiLAUDid 1MG INJ) 1 mg Q3H3 PRN IVP SEVERE PAIN (7-10) 04/25/25 12:00 04/30/25 11:59 Ketorolac Tromethamine (toRADol) 15 mg Q12H PRN IV MODERATE PAIN (4-6) IF NPO 04/23/25 15:30 04/25/25 16:00 DC 04/23/25 19:59 15 MG Lactated Ringer's 1,000 ml @ 100 mls/hr Q10H IV 04/23/25 15:00 04/24/25 21:00 DC 04/24/25 21:06 100 MLS/HR Metoprolol Tartrate (loprESSOR) 50 mg BID PO 04/23/25 21:00 05/23/25 20:59 04/26/25 10:14 50 MG Morphine Sulfate (morPHINE 2MG SYG) 2 mg Q6H PRN IVP SEVERE PAIN (7-10) IF NPO 04/23/25 15:30 04/25/25 16:28 DC Ondansetron HCl (zoFRAN 4MG INJ) 4 mg Q6H PRN IVP NAUSEA/VOMITING 04/23/25 15:30 05/23/25 15:29 Oxycodone/ Acetaminophen (perCOCET) 1 tab Q4H PRN PO PAIN LEVEL 4 TO 6 04/25/25 12:00 05/02/25 11:59 04/26/25 10:14 1 TAB Piperacillin Sod/ Tazobactam Sod (Zosyn 3.375gm+NS 50ml) 3.375 gm Q8H IVPB 04/23/25 15:30 05/03/25 15:29 04/26/25 07:10 3.375 GM Piperacillin Sod/ Tazobactam Sod (Zosyn 3.375gm+NS 50ml) 3.375 gm Q8H STAT IV 04/23/25 14:44 04/23/25 14:45 DC Potassium Chloride 100 ml @ 100 mls/hr AD PRN IV POTASSIUM PROTOCOL 04/24/25 08:30 05/24/25 08:29 Potassium Chloride (K-Dur/Klor-Con 20meq) 20 meq AD PRN PO POTASSIUM PROTOCOL 04/24/25 08:30 05/24/25 08:29 04/25/25 18:47 20 MEQ Potassium Chloride (KCl 10% Elixir 20meq/15ml) 20 meq AD PRN PO POTASSIUM PROTOCOL 04/24/25 08:30 05/24/25 08:29 04/25/25 17:08 20 MEQ Sodium Chloride 1,000 ml @ 100 mls/hr Q10H IV 04/25/25 12:00 04/25/25 21:59 DC 04/25/25 12:14 100 MLS/HR DIAGNOSTICS / RADIOLOGY: [ ] ASSESSMENT: Biliary colic with cholelithiasis, POA Rule out developing acute cholecystitis, POA Underlying history of atrial fibrillation, POA Rule out urinary tract infection, POA Obesity, POA PLAN: patient is seen and examined at bedside, case discussed with the RN, no acute events overnight, patient is status post laparoscopic cholecystectomy 04/25/2025, tolerated procedure well, the time of my visit on IV fluids, IV antibiotics, passing gas, she feels weak, hemoglobin stable at 11.8, hematocrit 35.5. Potassium level was at 3.3, now corrected at 3.9. Liver enzymes unremarkable. Anticipate discharge home in the next 24 hours per patient's request. NEURO: Minimize central acting medications as possible. Fall Precautions. Well lighted room through the day and minimize interruptions through the night to prevent acute delirium. PULMONARY: Supplemental 02 as needed BiPAP as necessary, for respiratory distress Titrate Fio2 to keep Spo2 > or = 90% DuoNebs and CPT as needed IS hourly while awake for pulmonary hygiene prn Out of bed to chair as tolerated Maintain aspiration precautions at all times CARDIOVASCULAR: Follow hemodynamics. Vital signs per facility protocol GI & NUTRITION: Continue nutritional support Aspirations precautions Prokinetic agents and laxatives as needed KIDNEYS & ELECTROLYTES: Strict monitoring of intake and output Daily weights Avoid nephrotoxic agents Monitor electrolytes and replace as needed Goal urine output of 30mL/hr or 0.5mL/kg/hr Medications to be dosed according to renal function. Avoid contrast if possible ENDOCRINE: Maintain blood glucose between 100-180 at all times. Insulin sliding scale for blood glucose management Hypoglycemia and hyperglycemia protocol in place INFECTIOUS DISEASE: Trend temperature, WBC and procalcitonin level Follow cultures, deescalate antibiotics as soon as possible. Panculture if new onset fever HEMATOLOGY & COAGULATION: Monitor H&H. Keep Hgb > 7 Transfuse 1 unit of PRBC for Hgb < 7 Transfuse 1 pack of platelets of platelets < 20, 000 Watch for any signs and symptoms of bleeding SKIN: Pressure ulcer prevention per facility protocol Specialty mattress as needed ORTHO/REHAB Continue PT/OT PRN: MEDICATIONS Tylenol 650 mg po every 4 hrs for fever zofran 4 mg IV every 6 hrs for n/v Hydralazine 5 mg IV every 4 hrs systolic pressure > 160 bowel regiment: lactulose 20 gm PO BID PRN constipation Supportive measures: Continue GI and DVT prophylaxis Disposition: All questions answered time spent: > 35 min PELON AVILEZ MD Apr 26, 2025 14:01
[2025-04-27 00:14] VITALS: BP 146/62; PULSE 60; RESP 18; TEMP 98
[2025-04-27 04:14] VITALS: BP 141/70; PULSE 67; RESP 17; TEMP 98.1
[2025-04-27 06:06] LABS: NUCLEATED RED BLOOD CELLS 0.0 % (0.0-0.19); PLATELET COUNT (AUTO) 216.0 K/uL (130-400); RED BLOOD CELL COUNT(AUTO) 3.89 MIL/uL (4.00-5.50); RED CELL DISTRIBUTION WIDTH 13.8 % (11.0-15.5); WHITE BLOOD COUNT (AUTO) 6.6 K/uL (4.8-10.8)
[2025-04-27 06:22] LABS: ASPARTATE AMINOTRANSFERASE 36.0 U/L (10-37); CREATININE 0.7 mg/dL (0.5-1.0); GLOMERULAR FILTR. RATE CALC 103.0 mL/min (>90); GLUCOSE,RANDOM 98.0 mg/dL (70-105); SODIUM SERUM 139.0 mmol/L (136-145); TOTAL PROTEIN, SERUM 6.6 g/dL (6.0-8.3); UREA NITROGEN, BLOOD 9.0 mg/dL (7-18)
[2025-04-27 07:51] VITALS: BP 145/75; PULSE 61; RESP 18; TEMP 98.2
[2025-04-27 08:00] VITALS: O2SAT 94
[2025-04-27] MEDS: PoTASSium chloRIDE 20MEQ ER 20 MEQ ERTAB PO ONE (10:11)
[2025-04-27 11:47] VITALS: BP 138/79; PULSE 64; RESP 19; TEMP 98.4
[2025-04-27] MEDS ORDERED: PERCT PO (12:47)
[2025-04-27] MEDS ORDERED: DOCU-116 PO (12:47)
[2025-04-27] MEDS ORDERED: AMOX1TAB16 PO (12:48)
--- NOTE | 2025-04-27 12:52 | DS ---
Discharge Summary Hospital Course Summary: The patient initially admitted to the hospital April 23, 2025 with the following history of the present illness: Date of service: 04/23/2025, patient was seen in ER 16 This is a 54-year-old female with underlying history of atrial fibrillation, obesity who presented to the ER for further evaluation of epigastric abdominal pain with nausea. Symptoms started early this morning and was severe in intensity and patient rated the pain as 8/10. Pain was radiating to the back. Pain has been intermittent and on current bedside interview, she reports pain is 6/10. Denies previous history of GI disorder. Denies previous history of gastritis/peptic ulcer disease. Patient is followed by Dr. Lane with cardiac electrophysiology as outpatient. Reports a prior diagnosis of atrial fibrillation and is currently maintained on outpatient treatment with metoprolol tartrate 50 mg b.i.d. and flecainide 50 mg b.i.d.. Patient denies being on anticoagulation for atrial fibrillation. Denies being on aspirin either. On presentation to the hospital, patient was noted to be afebrile with T-max of 97.9 F, blood pressure of 179/77, heart rate of 64 and saturating well on room air. Labs on presentation showed WBC count of 6900, hemoglobin of 12.6, platelet count of 4000. CMP was unremarkable. Cardiac panel was noted to be negative. Further evaluation with CT abdomen pelvis without contrast showed findings of large gallbladder calculus measuring 2.4 cm x 3.5 cm with gallbladder distention. Abdominal US showed findings of cholelithiasis with gallbladder distention with cholecystitis not ruled out. Patient will be admitted for further treatment management of biliary colic with cholelithiasis with concerns for possible cholecystitis. Patient will be started on IV fluid hydration, IV antibiotics and will be kept NPO. Consultation with General surgery has already been requested from the ER by Dr. Hurley, will follow up further recommendations. HIDA Scan will be obtained. Patient denies active chest pain or shortness of breath otherwise. HOSPITAL COURSE The patient was admitted to the medical floor, supportive care with IV fluids, pain medication and empiric antibiotic was done, surgical consultation reque sted, laparoscopic cholecystectomy performed, tolerated procedure well. Today patient is alert oriented x3, hemodynamically stable, tolerating diet, no nausea, no vomiting, no abdominal pain. PHYSICAL EXAM GENERAL APPEARANCE: The patient is awake, alert, and oriented, in no acute cardiopulmonary distress. NEUROLOGICAL: Cranial nerves II-XII grossly intact. Motor is 5/5 in bilateral upper and lower extremities proximal to distal. No sensory deficits. HEENT: Face is symmetric. Pupils are equal and reactive. Extraocular movements are intact. NECK: Supple. No JVD. No thyromegaly. No submental, submandibular, pre- /postauricular, occipital or supraclavicular lymphadenopathy. CHEST: Normal chest expansion. No Telemetry. LUNGS: Absence of any rales, rhonchi or any wheezing. CARDIOVASCULAR: Regular. S1 and S2 normal. No appreciable rubs, murmurs or gallops. ABDOMEN: Soft, nontender, and nondistended. There is no rebound, voluntary guarding, or rigidity. : Deferred. No Muhammad. EXTREMITIES: Non-edematous and not cyanotic. No clubbing. Good capillary refill. SKIN: No skin breakdown. Case Packer(s): General surgery Procedure(s): DATE OF SERVICE: 04/25/2025 PREOPERATIVE DIAGNOSES: Acute cholecystitis Cholelithiasis POSTOPERATIVE DIAGNOSES: Acute cholecystitis Cholelithiasis PROCEDURE PERFORMED: Laparoscopic cholecystectomy. SURGEON: Jose Antonio Haywood MD ANESTHESIA: General. ESTIMATED BLOOD LOSS: Minimal. FINDINGS: 1. Severe right upper quadrant inflammatory adhesions. 2. Enlarged tense gallbladder. 3. Cholelithiasis. 4. Thick edematous gallbladder wall SPECIMEN REMOVED: Gallbladder. COMPLICATIONS: None. DESCRIPTION OF PROCEDURE: The patient was brought into the operating room. After proper identification, the patient was placed on operating table in the supine position. General anesthesia was administered and the patient was endotracheally intubated. Attention was then focus in the area of the abdomen. The same was prepped and draped in the usual sterile fashion. An appropriate timeout was then carried out at this point. Then I proceeded by making a supraumbilical incision. The incision was carried through the skin and subcutaneous tissue until the fascia was identified. The fascia was then carefully incised. Stay stitches were placed on either side of the fascia and the abdominal cavity was entered. The Faviola port was then introduced. CO2 was insufflated into the abdomen and the laparoscope was introduced. Inspection of the abdomen showed evidence of severe right upper quadrant inflammatory adhesions and large gallbladder. Three additional ports were then placed, one in the epigastric region 2 in the right upper quadrant. The patient was then placed in reverse Trendelenburg position rotated to the left. A grasper was then used to grasp the fundus of the gallbladder and the same was retracted cephalad and the inflammatory adhesions in the right upper quadrant was then carefully taken down using the Bovie cautery. At the infundibulum same was retracted lateral and the peritoneal covering the triangle of Calot was then carefully opened. The cystic duct and the cystic artery were then identified. Each of these structures were then carefully skeletonized for a distance of about 2 cm. Proximal distal clippings were then applied in each of these structures were then transected between clips. The gallbladder was then removed from the gallbladder fossa using the Bovie cautery, care taken not to injure the liver. The gallbladder was then extracted from the abdomen using an Endopouch. Copious amounts of irrigation was carried out at this point. Hemostasis was noted to be adequate. So, at this point, I proceeded by closing the wound. Ports were withdrawn under vision. CO2 was let out of the abdomen. Supraumbilical fascia was approximated together using 0 Vicryl [id number] stitches and the skin was approximated together using 4-0 Monocryl subcuticular closure. Steri-Strips and sterile dressings were then applied. Instrument and sponge count was taken found to be correct 2. The patient was then woken up, extubated and taken to the recovery room in stable condition. The patient tolerated the procedure well. JOSE ANTONIO GRIGSBY MD Assessment/Plan: Final diagnosis Cholelithiasis with a acute cholecystitis, POA Status post laparoscopic cholecystectomy 04/25/2025 Underlying history of atrial fibrillation, POA Rule out urinary tract infection, POA Obesity, POA Discharge Instructions: The patient to follow with General surgery as an outpatient and return to the hospital if condition changes, patient agreed with plan and understood the information provided. Home Medications: Active Scripts Oxycodone HCl/Acetaminophen (Percocet 5/325Mg Tab) 5 Mg-325 Mg Tab, 1 TAB PO Q4H PRN for PAIN LEVEL 4 TO 6 for 3 Days, #18 TAB 0 Refills Prov:PELON AVILEZ MD 8/10/25 Reported Medications Flecainide Acetate (Flecainide Acetate) 50 Mg Tablet, 1 TAB PO BID 04/25/25 Metoprolol Tartrate (Lopressor 50Mg Tab) 50 Mg Tab, 1 TAB PO BID 04/25/25 Time spent arranging discharge: 31-60 minutes PELON AVILEZ MD Apr 27, 2025 12:52
--- NOTE | 2025-04-27 13:54 | PN ---
GENERAL SURGERY PROGRESS NOTE DATE OF SERVICE: Apr 27, 2025 TIME OF SERVICE: 13:54 Doing well No abdominal pain Tolerating diet PROBLEM LISTS: [ ] INTERVAL HISTORY: [ ] S/p laparoscopic cholecystectomy PHYSICAL EXAMINATION: GENERAL: [Patient is lying comfortably in bed, not in any obvious distress.] HEAD: [Normal with no signs of head trauma.] EYES: [Not pale not jaundiced afebrile to touch.] ENT: [ Normal.] NECK: [Supple,no tenderness,no lymphadenopathy,no masses,no thyromegaly ,no bruits, no JVD.] LUNGS: [Clear breath sounds bilaterally. No wheezes, rales, or rhonchi.] HEART: [Regular rate and rhythm. Normal S1 and S2, without murmurs, rub or gallop.] VASC: [No edema. Peripheral pulses normal and equal in all extremities.] ABD: [Soft incisions clean dry and intact : [Normal, no suprapubic tenderness.] LYMPH: [No lymphadenopathy noted.] EXT: [ Warm soft, non tender.] SKIN: [ No rashes or lesions.] NEURO: [ Awake Alert and oriented x3.] LABORATORY: [ ] Hematology Labs: Test 04/27/25 05:28 Range/Units White Blood Count 6.6 4.8-10.8 K/uL Red Blood Count 3.89 L 4.00-5.50 MIL/uL Hemoglobin 11.3 L 12.0-16.0 g/dL Hematocrit 35.1 L 36-48 % Mean Corpuscular Volume 90.2 79-99 fL Mean Corpuscular Hemoglobin 29.0 27.0-33.0 pg Mean Corpuscular Hemoglobin Concent 32.2 32.0-36.0 g/dL Red Cell Distribution Width 13.8 11.0-15.5 % Platelet Count 216 130-400 K/uL Mean Platelet Volume 10.4 7.5-10.5 fL Nucleated Red Blood Cells 0.0 0.0-0.19 % Chemistry Labs: Test 04/27/25 05:28 Range/Units Sodium Level 139 136-145 mmol/L Potassium Level 3.4 L 3.5-5.1 mmol/L Chloride Level 104 101-111 mmol/L Carbon Dioxide Level 26 21-32 mmol/L Blood Urea Nitrogen 9 7-18 mg/dL Creatinine 0.7 0.5-1.0 mg/dL Glomerular Filtration Rate Calc 103 >90 mL/min Random Glucose 98 70-105 mg/dL Total Calcium 8.5 8.5-10.1 mg/dL Magnesium Level 2.10 1.80-2.40 mg/dL Total Bilirubin 0.5 0.2-1.0 mg/dL Aspartate Amino Transf (AST/SGOT) 36 10-37 U/L Alanine Aminotransferase (ALT/SGPT) 59 12-78 U/L Alkaline Phosphatase 56 50-136 U/L Total Protein 6.6 6.0-8.3 g/dL Albumin 3.3 L 3.5-5.0 g/dL DIAGNOSTICS / RADIOLOGY: [Copy/Paste Echos/Imaging Report here] ASSESSMENT: [] Acute cholecystitis Cholelithiasis S/p laparoscopic cholecystectomy Overall doing well PLAN: Okay to DC home today Follow-up in my office in two weeks JOSE ANTONIO GRIGSBY MD Apr 27, 2025 13:54
--- NOTE | 2025-04-27 14:17 | NUR ---
PATIENT IS DISCHARGED. IV TAKEN OUT WITH CATHETER INTACT. EDUCATION GIVEN TO PATIENT ON POST OPERATIVE CARE. UNABLE TO MAKE PATIENT AN APPOINTMENT DUE TO OFFICE BEING CLOSED. PROVIDED PATIENT WITH PHONE NUMBER TO FACILITY AND FOLLOW UP TIME PERIOD.
== END 2025-04-27 14:36 | disposition home or self-care (01) | DRG 418 ==
LOC: EDH 07:20 → EDHIP 07:21 → 3CH 22:45
PROVIDERS: ADMIT Internal Medicine; ATTEND Internal Medicine
PROC: 0FT44ZZ Resection of Gallbladder, Percutaneous Endoscopic Approach (ICD-10-PCS; principal; 2025-04-25 09:12)
DX: K80.62 Calculus of gallbladder and bile duct with acute cholecystitis without obstruction (principal); Z68.41 Body mass index [BMI] 40.0-44.9, adult; K82.8 Other specified diseases of gallbladder; E66.01 Morbid (severe) obesity due to excess calories; I48.0 Paroxysmal atrial fibrillation; K76.0 Fatty (change of) liver, not elsewhere classified
CPT/HCPCS: 36415; 74176; 76705; 78226; 80053; 81001; 83036; 83690; 83735; 84145; 84443; 84484; 85025; 85027; 85610; 85651; 85730; 86140; 87086; 87186; 93005; 96374; 96375; 99285; A4450; A9537; G0378; J0330; J0690; J1650; J1885; J2250; J2270; J2405; J2470; J2543; J2704; J3010; J3490; J7030; J7120; A4216; A4222; A4223; A4600; A4649; A4930; C1769; J0665